=== PATIENT | male | born 1975 | race Caucasian/White ===

== ENCOUNTER → 2018-10-26 09:38 | Outpatient (CLI) | payer OTHER, SELFPAY ==
--- NOTE | 2018-10-26 09:42 | XR_ITS ---
XR KUB HISTORY: Bilateral flank pain ITS.REASON: KIDNEY STONE ORDERING PHYSICIAN: Isra Hoover MD PATIENT AGE: 43 years COMPARISON: 05/01/2018 FINDINGS: The bowel gas pattern is unremarkable. No obvious obstruction.. No abnormal calcifications are evident. No obvious renal or ureteral calculi.. No acute bony anomalies evident. There are bilateral pelvic calcifications consistent with phleboliths. There are 2 coil shaped metallic densities overlying the symphysis pubis IMPRESSION: Negative KUB, no acute finding
== END ==
PROVIDERS: PCP Emergency Medicine; Visit Provider Urology
DX: N20.0 Calculus of kidney (principal)
CPT/HCPCS: 74018

== ENCOUNTER → 2019-10-28 22:58 | Outpatient (CLI) | payer BC, SELFPAY | PROVIDERS: PCP Emergency Medicine; Visit Provider Emergency Medicine | DX: Z03.818 Encounter for observation for suspected exposure to other biological agents ruled out (principal) | CPT/HCPCS: U0003 ==

== ENCOUNTER → 2019-10-31 09:12 | Outpatient (CLI) | payer BC, SELFPAY ==
[2019-11-01 11:01] LABS: Alanine Aminotransferase 50 U/L (12-78); Albumin Level 4.4 g/dl (3.5-5.0); Albumin/Globulin Ratio 1.6 (1.1-1.8); Alkaline Phosphatase 103 U/L (38-126); Anion Gap 14.4 mEq/L (5-15); Aspartate Amino Transferase 40 U/L (17-59); Bilirubin,Total 0.4 mg/dl (0.2-1.3); Blood Urea Nitrogen 10 mg/dl (9-20); Calcium 9.7 mg/dl (8.4-10.2); Carbon Dioxide 28 mmol/L (22.0-30.0); Chloride 103 mmol/L (98-107); Cholesterol 233 mg/dl (140-200); Estimated Glomerular Filt Rate 91 ml/min (>60); GFR (African American) 110 ML/MIN (>60); Globulin 2.7 g/dL (1.3-3.2); Glucose 102 mg/dl (74-100); HDL Cholesterol 47 mg/dl (40-60); Potassium 4.4 mmoL/L (3.5-5.1); Sodium 141 mmol/L (136-145); Total Protein,Serum 7.1 g/dl (6.3-8.2); Triglycerides 114 mg/dl (30-150); VLDL Cholesterol 23 mg/dL (0-40)
[2019-11-01 11:12] LABS: Direct LDL Cholesterol 169.79 mg/dL (100-129)
[2019-11-01 11:17] LABS: Free T4 (Free Thyroxine) 1.13 ng/dl (0.78-2.19)
[2019-11-01 11:18] LABS: 25-OH Vitamin D, Total 37.5 ng/mL (30-100)
[2019-11-01 11:32] LABS: Thyroid Stimulating Hormone 2.66 uIU/mL (0.465-4.68)
== END ==
PROVIDERS: Visit Provider Emergency Medicine
DX: R53.83 Other fatigue (principal); E55.9 Vitamin D deficiency, unspecified
CPT/HCPCS: 80053; 80061; 82306; 84439; 84443

== ENCOUNTER → 2020-04-22 13:22 | Outpatient (POV) | payer BC, SELFPAY | PROVIDERS: Visit Provider Dermatology | DX: Z00.00 Encounter for general adult medical examination without abnormal findings (principal) ==

== ENCOUNTER → 2020-12-17 19:09 | Outpatient (CLI) | payer BC, SELFPAY | PROVIDERS: PCP Emergency Medicine; Visit Provider Nurse Practitioner Family | DX: Z20.822 Contact with and (suspected) exposure to COVID-19 (principal) | CPT/HCPCS: C9803; U0003; U0005 ==

== ENCOUNTER → 2021-10-01 14:10 | Outpatient (CLI) | payer BC, SELFPAY ==
[2021-10-01 14:01] LABS: Influenza A, PCR Not Detected (NotDetected); Influenza B, PCR Not Detected (NotDetected)
[2021-10-01 15:44] LABS: Coronavirus 19, PCR Detected (NotDetected)
== END ==
PROVIDERS: PCP Physician Assistant; Visit Provider Physician Assistant
DX: U07.1 COVID-19 (principal); J06.9 Acute upper respiratory infection, unspecified; M54.2 Cervicalgia; R06.00 Dyspnea, unspecified; R10.32 Left lower quadrant pain; R53.83 Other fatigue; R63.1 Polydipsia; Z83.3 Family history of diabetes mellitus
CPT/HCPCS: C9803; U0003; U0005

== ENCOUNTER → 2021-10-23 12:52 | Outpatient (CLI) | payer BC, SELFPAY ==
--- NOTE | 2021-10-23 12:56 | CA_ITS ---
APPROVED REPORT EXAM: Comprehensive 2D, Doppler, and color-flow Echocardiogram Parachute/Combatant Diver Officer: Zayda Jones RVT Ht: 6 ft 4 in Wt: 225lbs BSA: 2.33 BP: 150/100 mmHg Indications: STONE,RECENT COVID 2D Dimensions LVOT 2.44 cm (M/F) 1.5-2.5 LA Volume 21.70 mL LA Volume Index 9.31 mL/m2 (M/F) 16-34 M-Mode Dimensions RVDd 2.49 cm (0.9-2.6) LA Diam 3.14 cm (1.9-4.0) LVDd 5.34 cm (3.5-5.7) Ao Diam 4.10 cm (2.0-3.7) LVDs 3.80 cm (3.5-5.7) IVSd 0.76 cm (0.6-1.1) PWd 0.63 cm (0.6-1.1) EF (Teich) 55.00% FS 28.80% EDV (Teich) 137.70 mL ESV (Teich) 62.00 mL LV Diastology E Decel Time 190.00 (160-240 msec) E/A Ratio 0.7 MED E' 5.50 (< 7 cm/sec) E'/MED E' Ratio 6.91 (>14) LAT E' 7.80 (<10 cm/sec) E/LAT E' Ratio 4.87 (>14) Aortic Valve AO Peak GR. 3.00 mmHg Mitral Valve MV E Max Leonel. 38.00 (40-130 cm/s) MV A Velocity 53.00 (40-130 cm/s) E/A Ratio 0.72 MV Decel. Time 190.00 (160-240 ms) MV PHT 56.00 ms Pulmonary Valve PV Peak Velocity 60.00 (50-150 cm/s) Tricuspid Valve TR P. Velocity 229.00 cm/s RAP Estimate 10.00 mmHg RVSP 31.00 mmHg Left Ventricle Left atrium is mildly enlarged, left ventricle is normal size , left ventricle wall thickness is upper limit of the normal, there is preserved left ventricular systolic function, estimated ejection fraction 50% with no regional wall motion abnormality, Doppler evidence of impaired LV relaxation seen. Right Ventricle Right atrium and right ventricle are mildly enlarged with normal contractility. Aortic Valve Aortic valve is grossly normal, there is no aortic stenosis or aortic insufficiency. Mitral Valve Mitral valve is grossly normal, there is trace mitral regurgitation. Tricuspid Valve Tricuspid valve grossly normal, there is trace tricuspid regurgitation, tricuspid regurgitation jet velocity is inadequate for calculation of the right ventricular systolic pressure. Pulmonic Valve Pulmonic valve is poorly visualized. Great Vessels Aortic root is normal size. Inferior vena cava is normal size with normal inspiratory collapse. Pericardium No significant pericardial effusion noted. Conclusion 1. Mild biatrial enlargement, normal left ventricular size, estimated ejection fraction 50% with no regional wall motion abnormality, Doppler evidence of impaired LV relaxation seen. 2. Mildly enlarged right ventricle with normal contractility. 3. Trace mitral and tricuspid regurgitation. 4. No significant pericardial effusion noted. 5. Inferior vena cava normal 7 normal inspiratory collapse. Electronically signed by : Sean Benitez MD 10/23/2021 13:33:25
--- NOTE | 2021-10-23 13:21 | XR_ITS ---
FINAL REPORT CLINICAL HISTORY: neck pain FINDINGS: CERVICAL SPINE Seven views demonstrate no acute fracture. There is mild degenerative change in the lower cervical spine with osteophytes. There is chronic calcification posterior to C5. There is no malalignment. IMPRESSION: Degenerative changes as above. Reviewed, Interpreted and Dictated by Joshua Connors III, MD Transcribed by Sharon Schwab Authenticated and [facility]
[2021-10-23 14:54] LABS: Basophils # 0.1 K/mm3 (0-0.2); Basophils % 1.2 % (0.1-2.0); Eosinophils # 0.1 K/mm3 (0.0-0.4); Eosinophils % 1.7 % (0.1-12.0); Hematocrit 43.2 % (42.0-52.0); Hemoglobin 13.7 g/dL (14.1-18.0); Lymphocytes # 1.8 K/mm3 (0.7-4.5); Lymphocytes % 29.1 % (10-50); Mean Corpuscular HGB Conc 31.6 g/dL (31.8-35.4); Mean Corpuscular Hemoglobin 29.2 pg (27.0-31.2); Mean Corpuscular Volume 92.3 fl (80-94); Mean Platelet Volume 7.8 fl (7.4-10.4); Monocytes # 0.4 K/mm3 (0.1-1.0); Monocytes % 6.2 % (1.7-9.3); Neutrophils # 3.9 K/mm3 (1.8-7.8); Neutrophils % 61.7 % (37.0-80.0); Platelet Count 314 K/mm3 (142-424); Red Blood Count 4.68 M/mm3 (4.60-6.20); Red Cell Distribution Width 13.2 % (11.5-17.5); White Blood Count 6.3 K/mm3 (4.8-10.8)
[2021-10-23 15:11] LABS: Hemoglobin A1C 5.7 % (4.0-6.0)
[2021-10-23 15:28] LABS: Alanine Aminotransferase 35 U/L (12-78); Albumin/Globulin Ratio 1.7 (1.1-1.8); Alkaline Phosphatase 85 U/L (38-126); Anion Gap 8.4 mEq/L (5-15); Aspartate Amino Transferase 31 U/L (17-59); Bilirubin,Total 0.2 mg/dl (0.2-1.3); Blood Urea Nitrogen 13 mg/dl (9-20); Calcium 9.2 mg/dl (8.4-10.2); Carbon Dioxide 28 mmol/L (22.0-30.0); Chloride 106 mmol/L (98-107); Chol/HDL Ratio 5.3 (1-3.5); Cholesterol 218 mg/dl (140-200); Estimated Glomerular Filt Rate 71 ml/min (>60); GFR (African American) 86 ML/MIN (>60); Globulin 2.4 g/dL (1.3-3.2); Glucose 149 mg/dl (74-100); HDL Cholesterol 41 mg/dl (40-60); Potassium 4.4 mmoL/L (3.5-5.1); Sodium 138 mmol/L (136-145); Total Protein,Serum 6.4 g/dl (6.3-8.2); Triglycerides 94 mg/dl (30-150); VLDL Cholesterol 19 mg/dL (0-40)
[2021-10-23 15:43] LABS: 25-OH Vitamin D, Total 47.1 ng/mL (30-100)
[2021-10-23 15:58] LABS: Thyroid Stimulating Hormone 0.82 uIU/mL (0.465-4.68)
[2021-10-25 08:12] LABS: Direct LDL Cholesterol 144 mg/dL (100-129)
[2021-10-25 10:08] LABS: Testosterone,Total 430 ng/dL (264-916)
== END ==
PROVIDERS: PCP Physician Assistant; Visit Provider Physician Assistant
DX: R06.00 Dyspnea, unspecified (principal); M54.2 Cervicalgia; R10.32 Left lower quadrant pain; R53.83 Other fatigue; R63.1 Polydipsia; Z83.3 Family history of diabetes mellitus; Z12.5 Encounter for screening for malignant neoplasm of prostate
CPT/HCPCS: 36415; 72050; 80053; 80061; 82306; 83036; 84403; 84443; 85025; 93306; G0103

== ENCOUNTER → 2021-11-12 11:42 | Outpatient (CLI) | payer BC, SELFPAY ==
--- NOTE | 2021-11-12 13:46 | HMH.ITSHM ---
Current Home Medications as stated by this patient Lopez Lazcano or outside sales account representative. [ATORVASTATIN
== END ==
PROVIDERS: PCP Physician Assistant; Visit Provider Physician Assistant
DX: R06.00 Dyspnea, unspecified (principal); R94.31 Abnormal electrocardiogram [ECG] [EKG]; R53.83 Other fatigue; E78.5 Hyperlipidemia, unspecified; R06.83 Snoring; R40.0 Somnolence
CPT/HCPCS: 78452; 93017; A9502

== ENCOUNTER → 2021-11-24 16:04 | Outpatient (CLI) | payer BC, SELFPAY | PROVIDERS: PCP Emergency Medicine; Visit Provider Physician Assistant | DX: G47.33 Obstructive sleep apnea (adult) (pediatric) (principal); R06.00 Dyspnea, unspecified; R06.83 Snoring; R40.0 Somnolence; R94.31 Abnormal electrocardiogram [ECG] [EKG]; E78.5 Hyperlipidemia, unspecified; R53.83 Other fatigue | CPT/HCPCS: G0399 ==

== ENCOUNTER → 2021-11-26 11:07 | Outpatient (CLI) | payer BC, SELFPAY ==
[2021-11-26 11:59] LABS: Basophils # 0.1 K/mm3 (0-0.2); Basophils % 1.4 % (0.1-2.0); Eosinophils # 0.2 K/mm3 (0.0-0.4); Eosinophils % 1.9 % (0.1-12.0); Hemoglobin 14.1 g/dL (14.1-18.0); Lymphocytes # 2.7 K/mm3 (0.7-4.5); Lymphocytes % 31.7 % (10-50); Mean Corpuscular HGB Conc 32.8 g/dL (31.8-35.4); Mean Corpuscular Hemoglobin 29.3 pg (27.0-31.2); Mean Corpuscular Volume 89.4 fl (80-94); Mean Platelet Volume 7.5 fl (7.4-10.4); Monocytes # 0.5 K/mm3 (0.1-1.0); Monocytes % 6.1 % (1.7-9.3); Neutrophils % 58.8 % (37.0-80.0); Platelet Count 370 K/mm3 (142-424); Red Blood Count 4.81 M/mm3 (4.60-6.20); Red Cell Distribution Width 13.5 % (11.5-17.5); White Blood Count 8.5 K/mm3 (4.8-10.8)
[2021-11-26 12:31] LABS: Blood Urea Nitrogen 11 mg/dl (9-20); Carbon Dioxide 30 mmol/L (22.0-30.0); Chloride 107 mmol/L (98-107); Estimated Glomerular Filt Rate 80 ml/min (>60); GFR (African American) 97 ML/MIN (>60); Glucose 81 mg/dl (74-100); Potassium 4.4 mmoL/L (3.5-5.1)
[2021-11-26 12:37] LABS: Anion Gap 7.4 mEq/L (5-15); Sodium 140 mmol/L (136-145)
== END ==
PROVIDERS: PCP Emergency Medicine; Visit Provider Nurse Practitioner
DX: Z01.810 Encounter for preprocedural cardiovascular examination (principal); Z20.822 Contact with and (suspected) exposure to COVID-19
CPT/HCPCS: 36415; 80048; 85025; C9803; U0003; U0005

== ENCOUNTER 2021-11-26 16:30 | Outpatient (RCR) | payer BC, SELFPAY ==
--- NOTE | 2021-11-17 15:38 | HMH.PTOPEV ---
PT Outpatient Evaluation Rehab PT Outpatient Evaluation Start: 11/17/21 14:02 Freq: Status: Active Protocol: Document 11/17/21 14:25 ALANNA (Rec: 11/17/21 15:38 ALANNA [id number]) E-signed By aCm Daniel, PT Outpatient Therapy Subjective History Subjective History Pt reports insidious onset neck pain beginning ~2 yrs ago . Pt reports midline lower cervical area pain/discomfort, with referred pain into CT junction area, as well as bilateral UT mm. Recent xray of cervical spine has revealed mild degenerative changes in the mid/lower cervical spine. Chief Complaint Pain,Stiff Symptom Type Ache,Dull Symptoms Relieved By Rest/Positioning Symptoms Aggravated By Bending/Stooping,Lifting Prior Functional Limitations Lifting,Desk Work/Reading, Driving Current Functional Limitations Lifting,Desk Work/Reading, Driving Symptom Description Constant but Variable Level of pain today (0-10) 2 Pain scale - at its best (0-10) 2 Pain scale - at its worst (0-10) 4 Cervical Eval Palpation Cervical Muscles R Cervical Paraspinal,L Cervical Paraspinal,R CT Junction,L CT Junction,R Upper Trapezius,L Upper Trapezius Cervical/Thoracic Palpation Findings Tenderness Posture Head/C-Spine Posture Sitting Position Flexed Head/C-Spine Posture Standing Position Flexed Flexibility Deficits Upper Trapezius Muscle Length (R) Mild Tightness,(L) Mild Tightness Scalene Group Muscle Length (R) Mild Tightness,(L) Mild Tightness Passive Joint Mobility Cervical PIVM Dec: R C4/5 L C4/5 R C5/6 L C5/6 R C6/7 L C6/7 R C7/T1 L C7/T1 WNL: R OA L OA R AA L AA R C2/3 L C2/3 R C3/4 L C3/4 AROM Cervical Spine Extension Active Range of 0-28 Motion (degrees) Cervical Spine Fle
== END 2021-11-26 17:30 | disposition home or self-care (01) ==
LOC: PT 16:30
PROVIDERS: PCP Physician Assistant; Visit Provider Physician Assistant
DX: M50.30 Other cervical disc degeneration, unspecified cervical region (principal)
CPT/HCPCS: 97010; 97012; 97014; 97110; 97163; G0283

== ENCOUNTER 2021-11-27 08:53 | Day surgery (SDC) | payer BC, SELFPAY ==
[2021-11-27] VITALS (10 sets, daily range): BP systolic 108–130; BP diastolic 71–88; PULSE 66–88; RESP 18; O2SAT 93–98; BMI 26.0
--- NOTE | 2021-11-27 07:06 | IR_ITS ---
APPROVED REPORT Patient Location: Outpatient Fur Mixer: ЕЛЕНА Schulz RT (R) PROCEDURES Left heart catheterization Left ventriculogram Selective coronary angiogram INDICATION High risk abnormal Myoview, Angina pectoris, Informed consent was obtained prior to the procedure. COMPLICATIONS None Estimated Blood Loss: Less than 10 ml TECHNIQUE One percent lidocaine used to anesthetize the right anterior aspect of the wrist. The right radial artery was accessed via the Seldinger technique. A 6 Guyanese sheath was placed in the right radial artery. 2.5 mg of verapamil, 800 mcg of nitroglycerin, 1mg Lidocaine and 5000 U Heparin were given through the arterial sheath. The papa catheter was also used to perform left heart catheterization, left ventriculogram and selective coronary angiogram. At the end of the procedure the sheath was removed good hemostasis was achieved using Traclet band, patient was transferred to the postop holding area in stable condition. ANGIOGRAPHIC RESULTS The left main artery Normal The left anterior descending artery Normal The circumflex artery Normal The right coronary artery Dominant normal The RUDD ventriculogram reveals Normal 65% The left ventricular end-diastolic pressure 10 mmHg IMPRESSION Normal coronary arteries Normal ejection fraction Normal left ventricular end-diastolic pressure False-positive stress test from [facility] PLAN 1. Evaluation of noncardiac chest pain Electronically signed by : Nicholas Cary MD 11/27/2021 10:57:27
== END 2021-11-27 14:03 | disposition home or self-care (01) ==
PROVIDERS: PCP Emergency Medicine; Visit Provider Internal Medicine
DX: R94.39 Abnormal result of other cardiovascular function study (principal); R94.31 Abnormal electrocardiogram [ECG] [EKG]; R93.1 Abnormal findings on diagnostic imaging of heart and coronary circulation; E78.5 Hyperlipidemia, unspecified; R07.9 Chest pain, unspecified; R07.89 Other chest pain
CPT/HCPCS: 93458; 99152; C1725; C1760; C1769; J1644; Q9967

== ENCOUNTER → 2022-08-10 15:39 | Outpatient (POV) | payer BC, SELFPAY | PROVIDERS: Visit Provider Dermatology | DX: Z00.00 Encounter for general adult medical examination without abnormal findings (principal) ==

== ENCOUNTER 2023-04-28 11:42 | Outpatient (CLI) | payer BC, SELFPAY ==
[2023-04-28 11:55] LABS: Basophils # 0.1 K/mm3 (0-0.2); Basophils % 0.5 % (0.1-2.0); Eosinophils # 0.1 K/mm3 (0.0-0.4); Eosinophils % 1.4 % (0.1-12.0); Hematocrit 47.8 % (42.0-52.0); Hemoglobin 15.7 g/dL (14.1-18.0); Lymphocytes # 2.8 K/mm3 (0.7-4.5); Lymphocytes % 31.6 % (10-50); Mean Corpuscular HGB Conc 32.9 g/dL (31.8-35.4); Mean Corpuscular Hemoglobin 29.5 pg (27.0-31.2); Mean Corpuscular Volume 89.5 fl (80-94); Mean Platelet Volume 7.4 fl (7.4-10.4); Monocytes # 0.5 K/mm3 (0.1-1.0); Neutrophils # 5.3 K/mm3 (1.8-7.8); Neutrophils % 60.5 % (37.0-80.0); Platelet Count 385 K/mm3 (142-424); Red Blood Count 5.34 M/mm3 (4.60-6.20); Red Cell Distribution Width 13.1 % (11.5-17.5); White Blood Count 8.8 K/mm3 (4.8-10.8)
[2023-04-28 12:32] LABS: Alanine Aminotransferase 54 U/L (12-78); Albumin Level 4.5 g/dl (3.5-5.0); Albumin/Globulin Ratio 1.6 (1.1-1.8); Alkaline Phosphatase 92 U/L (38-126); Anion Gap 12.5 mEq/L (5-15); Aspartate Amino Transferase 40 U/L (17-59); Bilirubin,Total 0.4 mg/dl (0.2-1.3); Blood Urea Nitrogen 12 mg/dl (9-20); Calcium 9.4 mg/dl (8.4-10.2); Carbon Dioxide 26 mmol/L (22.0-30.0); Chloride 108 mmol/L (98-107); Chol/HDL Ratio 4.9 (1-3.5); Cholesterol 175 mg/dl (140-200); Estimated Glomerular Filt Rate 79 ml/min (>60); GFR (African American) 96 ML/MIN (>60); Globulin 2.8 g/dL (1.3-3.2); Glucose 107 mg/dl (74-100); HDL Cholesterol 36 mg/dl (40-60); Potassium 4.5 mmoL/L (3.5-5.1); Sodium 142 mmol/L (136-145); Total Protein,Serum 7.3 g/dl (6.3-8.2); Triglycerides 106 mg/dl (30-150); VLDL Cholesterol 21 mg/dL (0-40)
[2023-04-28 12:43] LABS: Direct LDL Cholesterol 102.72 mg/dL (100-129)
[2023-04-28 12:48] LABS: 25-OH Vitamin D, Total 14.9 ng/mL (30-100)
[2023-04-28 13:05] LABS: Thyroid Stimulating Hormone 1.18 uIU/mL (0.465-4.68)
[2023-04-28 13:22] LABS: Vitamin B12 333 pg/mL (239-931)
== END 2023-04-28 23:59 ==
LOC: LAB.DROPOF 11:42
PROVIDERS: PCP Physician Assistant; Visit Provider Physician Assistant
DX: E78.5 Hyperlipidemia, unspecified (principal); I10 Essential (primary) hypertension; E55.9 Vitamin D deficiency, unspecified; Z79.899 Other long term (current) drug therapy; Z12.5 Encounter for screening for malignant neoplasm of prostate
CPT/HCPCS: 80053; 80061; 82306; 82607; 84443; 85025; G0103

== ENCOUNTER 2023-06-08 16:18 | Emergency (ER) | payer BC, SELFPAY ==
[2023-06-08] VITALS (12 sets, daily range): BP systolic 116–146; BP diastolic 77–95; PULSE 74–97; RESP 16–18; TEMP 36.6–36.9; O2SAT 87–100; BMI 27.3
--- NOTE | 2023-06-08 16:42 | CT_ITS ---
PROCEDURE INFORMATION: Exam: CT Abdomen And Pelvis Without Contrast Exam date and time: 06/08/2023 5:34 PM Age: 48 years old Clinical indication: Abdominal pain; Additional info: L flank pain TECHNIQUE: Imaging protocol: Computed tomography of the abdomen and pelvis without contrast. Radiation optimization: All CT scans at this facility use at least one of these dose optimization techniques: automated exposure control; mA and/or kV adjustment per patient size (includes targeted exams where dose is matched to clinical indication); or iterative reconstruction. COMPARISON: No relevant prior studies available. FINDINGS: Lungs: Scattered areas of bronchial wall thickening which are likely chronic inflammatory. A few areas of subpleural reticulation are noted, nonspecific. Liver: Normal. Gallbladder and bile ducts: No acute process. Pancreas: Normal. Spleen: There is a small splenule. Adrenal glands: The adrenal glands appear normal. Kidneys and ureters: Moderate left hydroureteronephrosis extending to a 6 mm proximal ureteral calculus (image 67 series 3). Nonobstructing right-sided intrarenal calculi. Nonobstructing left-sided upper pole intrarenal calculi are noted. Stomach and bowel: The stomach, small bowel, and colon are well-distended and show no evidence of wall thickening, masses, or obstruction. Appendix: No evidence of appendicitis. Intraperitoneal space: Unremarkable. Vasculature: There is atherosclerotic disease of the visualized aorta and its major branch vessels. Lymph nodes: No lymphadenopathy. Urinary bladder: There is mild bladder wall thickening, possibly due to under distention and a nonspecific finding. Reproductive: Vasectomy clips partially imaged. Bones/joints: There is diffuse degenerative disease of the visualized osseous structures. Soft tissues: There are fat containing bilateral inguinal hernias. There are postsurgical changes of the ventral abdominal wall. There is a small fat containing umbilical hernia. IMPRESSION: Moderate left hydroureteronephrosis extending to a 6 mm proximal ureteral calculus (image 67 series 3).
--- NOTE | 2023-06-08 16:46 | HMH.EDGENADL ---
Discharge Plan Disposition Patient Disposition: Xfer Short-Term Hosp Condition: Good Prescriptions Prescriptions: No Action Shingrix (PF) 50 mcg/0.5 mL suspension for reconstitution 0.5 ml IM ONCE Qty: 1 0RF pantoprazole [Protonix] 40 mg tablet,delayed release (DR/EC) 40 mg PO DAILY Qty: 30 2RF sucralfate 1 gram tablet 1 g PO QACHS Qty: 120 2RF acyclovir 800 mg tablet 800 mg PO TID PRN (Reason: fever blisters) Qty: 30 2RF tadalafil [Cialis] 5 mg tablet 5 mg PO DAILY PRN (Reason: sexual activity) Qty: 60 3RF Rx Instructions: 5mg Daily 5mg as needed tizanidine 4 mg tablet 4 mg PO TID PRN (Reason: muscle spasticity) Qty: 30 0RF ergocalciferol (vitamin D2) 1,250 mcg (50,000 unit) capsule 1,250 mcg PO WEEKLY Qty: 14 3RF cholecalciferol (vitamin D3) 50 mcg (2,000 unit) capsule 50 mcg PO DAILY Qty: 90 3RF atorvastatin 10 mg tablet See Rx Instructions .ROUTE .COMPLEX Qty: 90 0RF Dose Instruction: TAKE ONE TABLET BY MOUTH EVERY DAY Rx Instructions: TAKE ONE TABLET BY MOUTH EVERY DAY Referrals Follow up/Referrals: Octavia Villela PA [Primary Care Provider] - See instructions Activity Restrictions/Add. Instructions Additional Instructions/Restrictions: You were evaluated in the emergency department today. You were excepted to [facility]. Please proceed directly to [facility]. [address] [place] [address] Clinical Impressions Clinical Impression: Calculus of left ureter, Intractable back pain Stand Alone Forms Stand Alone Forms: Transfer Record - ED Instructions Patient Instructions: DI for Kidney Stones Discharge ED Provider: Vero Waters General Adult HPI General Chief complaint: Abdominal Pain Stated complaint: back pain and abdomin pain Time Seen by Provider: 06/08/23 16:30 History of Present Illness HPI narrative: This patient is a 48-year-old male with a history of bilateral inguinal hernia repair, hypertension, hyperlipidemia, and recurrent kidney stones presenting to the emergency department for evaluation with concern for left flank pain that started overnight. He states that he drinks beers yesterday for his birthday and he thinks this might of caused it. He notes that it radiates around to his groin. He notes that it feels the same as prior kidney stones. He denies any fevers, chills, nausea, vomiting, changes bowel movements, other concerns. He has otherwise been well. Related Data Previous Rx's Medication Instructions Recorded acyclovir 800 mg tablet 800 mg PO TID PRN fever blisters 05/07/22 #30 tabs tadalafil 5 mg tablet (Cialis) 5 mg PO DAILY PRN sexual activity 09/11/22 #60 tabs tizanidine 4 mg tablet 4 mg PO TID PRN muscle spasticity 12/29/22 #30 tabs pantoprazole 40 mg tablet,delayed 40 mg PO DAILY #30 tabs 04/28/23 release (Protonix) sucralfate 1 gram tablet 1 g PO QACHS #120 tabs 04/28/23 varicella-zoster glycoE [id number] 0.5 ml IM ONCE #1 ea 04/28/23 adj(PF) 50 mcg/0.5 mL IM susp, kit (Shingrix (PF)) cholecalciferol (vitamin D3) 50 50 mcg PO DAILY #90 caps 05/02/23 mcg (2,000 unit) capsule ergocalciferol (vitamin D2) 1,250 1,250 mcg PO WEEKLY #14 caps 05/02/23 mcg (50,000 unit) capsule atorvastatin 10 mg tablet See Rx Instructions .Route 05/24/23 .COMPLEX #90 tabs Allergies Allergy/AdvReac Type Severity Reaction Status Date / Time clarithromycin [From BIAXIN] Allergy Intermediate I-RASH Verified 04/28/23 08:51 Penicillins Allergy Intermediate I-RASH Verified 04/28/23 08:51 [facility] Disclaimer: The information contained in this section may have been updated after the patient was seen, as this information can be updated by other users. Medical History Former smoker High cholesterol Social History Smoking Status: Never smoker alcohol intake: current substance use type: denies use current occupational status: employed Travel in the last 8 weeks: Inside the [place] household members: family housing: house ROS Obtained: Yes All systems reviewed & no additional complaints except as documented Physical Exam General General appearance: alert and in no apparent distress Comment: Uncomfortable appearing Head Head exam: atraumatic and normocephalic Eye Eye exam: Present normal appearance, PERRL and EOMI ENT ENT exam: Present normal exam, normal oropharynx, mucous membranes moist and normal external ear exam Neck Neck exam: Present normal inspection, full ROM and trachea midline; Absent tenderness Chest Chest inspection: Present normal inspection and symmetric chest wall rise; Absent tenderness Respiratory Respiratory exam: Present normal lung sounds bilaterally; Absent respiratory distress, wheezes, stridor or accessory muscle use Cardiovascular Cardiovascular exam: Present regular rate and normal rhythm Abdominal Exam Abdominal exam: Present soft; Absent distention, tenderness or guarding Extremities Exam Extremities exam: Present normal inspection, full ROM and normal capillary refill; Absent tenderness or edema Back Exam Back exam: Present full ROM and CVA tenderness (L); Absent tenderness Neurological Exam Neurological exam: Present alert, oriented X3, CN II-XII intact and normal gait; Absent motor sensory deficit Psychiatric Psychiatric exam: Present normal affect and normal mood Skin Skin exam: Present warm and dry Medical Decision Making Medical Records Medical records reviewed: Yes I reviewed the patient's medical records. Geronimo Inquiry Pt receiving controlled substance: No Vital Signs: 06/08/23 16:20 06/08/23 16:45 06/08/23 17:00 Temperature 97.9 F Temperature Source Oral Pulse Rate 84 89 Pulse Rate [Left Radial] 97 H Respiratory Rate 16 Blood Pressure 141/85 H 124/89 Blood Pressure [Right Arm] 144/94 H Blood Pressure Mean Blood Pressure Mean [Right Arm] 110 02 Sat by Pulse Oximetry 98 93 L 100 Oxygen Delivery Method Room Air Room Air Room Air 06/08/23 17:12 06/08/23 17:16 06/08/23 17:45 Temperature Temperature Source Pulse Rate 78 80 78 Pulse Rate [Left Radial] Respiratory Rate Blood Pressure 116/79 127/81 138/89 Blood Pressure [Right Arm] Blood Pressure Mean Blood Pressure Mean [Right Arm] 02 Sat by Pulse Oximetry 99 99 99 Oxygen Delivery Method Room Air Room Air 06/08/23 18:15 06/08/23 18:30 06/08/23 19:00 Temperature Temperature Source Pulse Rate 78 88 88 Pulse Rate [Left Radial] Respiratory Rate Blood Pressure 132/86 146/92 H 134/77 Blood Pressure [Right Arm] Blood Pressure Mean 96 Blood Pressure Mean [Right Arm] 02 Sat by Pulse Oximetry 95 99 96 Oxygen Delivery Method 06/08/23 19:15 06/08/23 19:30 Temperature Temperature Source Pulse Rate 79 90 Pulse Rate [Left Radial] Respiratory Rate Blood Pressure 143/95 H 132/84 Blood Pressure [Right Arm] Blood Pressure Mean 107 99 Blood Pressure Mean [Right Arm] 02 Sat by Pulse Oximetry 97 87 L Oxygen Delivery Method Lab Data Lab results reviewed: Yes I reviewed the patient's lab results. Lab Results 06/08/23 16:39: WBC 10.8, RBC 5.03, Hgb 15.2, Hct 46.2, MCV 91.7, MCH 30.2, MCHC 33.0, RDW 13.2, Plt Count 419, MPV 7.6, Neut % (Auto) 55.7, Lymph % (Auto) 36.2, [place] % (Auto) 6.2, Eos % (Auto) 0.7, Baso % (Auto) 1.2, Neut # (Auto) 6.0, Lymph # (Auto) 3.9, [place] # (Auto) 0.7, Eos # (Auto) 0.1, Baso # (Auto) 0.1, Sodium 143, Potassium 3.6, Chloride 104, Carbon Dioxide 30, Anion Gap 12.6, BUN 12, Creatinine 1.20, Estimated GFR 64, Est GFR ( Amer) 78, Glucose 88, Calcium 9.8, Total Bilirubin 0.4, AST 42, ALT 52, Alkaline Phosphatase 80, Total Protein 7.7, Albumin 4.7, Globulin 3.0, Albumin/Globulin Ratio 1.6, Lipase 103 06/08/23 18:15: Urine Color Yellow, Urine Appearance Clear, Urine pH 7.5, Ur Specific Dixon 1.015, Urine Protein Trace, Urine Glucose (UA) Negative, Urine Ketones 1+, Urine Blood 3+, Urine Nitrate Negative, Urine Bilirubin Negative, Urine Urobilinogen 0.2, Ur Leukocyte Esterase Negative, Urine RBC 20-50, Urine WBC 3-5, Ur Squamous Epith Cells None, Triple Phos Crystals Trace, Urine Bacteria None 06/08/23 16:39 06/08/23 16:39 Orders (Tests/Meds): ED MEDICATIONS Generic Name Dose Route Start Last Admin Trade Name Freq PRN Reason Stop Dose Admin Ketorolac Tromethamine 15 mg 06/08/23 20:35 Ketorolac 30mg/Ml Vial IV 06/08/23 20:36 ONCE ONE Ondansetron HCl 4 mg 06/08/23 20:35 Ondansetron 4mg/2ml Vial IV 06/08/23 20:36 ONCE ONE Discontinued Medications Generic Name Dose Route Start Last Admin Trade Name Pavel PRN Reason Stop Dose Admin Acetaminophen 1,000 mg 06/08/23 16:43 06/08/23 17:02 Acetaminophen 1,000mg/100ml Vial IV 06/08/23 16:44 1,000 mg ONCE ONE Administration Hydromorphone HCl 0.5 mg 06/08/23 17:13 06/08/23 17:17 Hydromorphone 2mg/Ml Syringe IV 06/08/23 17:14 0.5 mg ONCE ONE Administration Lactated Ringer's 1,000 mls @ 999 mls/hr 06/08/23 16:43 06/08/23 17:01 Lactated Ringer's 1000 Ml Bag IV 06/08/23 17:43 999 mls/hr .Q1H1M ONE Administration Ketorolac Tromethamine 15 mg 06/08/23 16:43 06/08/23 17:00 Ketorolac 30mg/Ml Vial IV 06/08/23 16:44 15 mg ONCE ONE Administration Morphine Sulfate 4 mg 06/08/23 16:50 06/08/23 16:58 Morphine 4mg/Ml Syringe IV 06/08/23 16:51 4 mg ONCE ONE Administration Ondansetron HCl 4 mg 06/08/23 16:43 06/08/23 16:59 Ondansetron 4mg/2ml Vial IV 06/08/23 16:44 4 mg ONCE ONE Administration ORDERS Category Date Time Status CT abdomen pelvis wo con Stat Cat Scan 06/08/23 16:42 Completed Complete Blood Count Auto Diff Stat Lab 06/08/23 16:39 Completed Comprehensive Metabolic Panel Stat Lab 06/08/23 16:39 Completed Lipase Stat Lab 06/08/23 16:39 Completed Urinalysis and Microscopic Stat Lab 06/08/23 18:15 Completed Urine Culture Stat Micro 06/08/23 16:42 Ordered Medical Decision Narrative: In summary, this patient is a 48-year-old male presenting to the Emergency Department for evaluation of left flank pain that feels similar to prior kidney stone. Differential diagnoses considered include but are not limited to nephrolithiasis, ureterolithiasis, pyelonephritis, cystitis, colitis, musculoskeletal strain/sprain. Ruling out the most morbid conditions drove assessment. Based on history and clinical exam, feel patient most likely has a kidney stone. Workup included CBC, CMP, urinalysis, urine culture, and CT abdomen and pelvis without IV contrast. He was given a bolus of IV fluids as well as IV Toradol, acetaminophen, and morphine for symptomatic improvement. This did not improve his pain, so he ultimately required IV Dilaudid for pain control. I independently interpreted the scan prior to the radiologist read and noted 6 millimeter left obstructing ureterolithiasis. Please see their read for final interpretation. Labs were obtained that demonstrated no concerns for infection based on urinalysis and no ANASTASIA or leukocytosis. On multiple subsequent reassessments, the patient continues to be uncomfortable and have significant pain. He advises that he does not feel comfortable going home because he has not been able to pass the kidney stones larger than 4 mm in the past. He states he is concerned that he will need to have procedure and wants urology evaluation sooner rather than later. Advised we do not have inpatient urology here, but I did offer to call consultation to another hospital. He requests [facility] at this time. Contact was initiated with them, and as of 1956, I am awaiting callback. I had an interactive discussion with Dr. Lemon at [facility] who advised the patient can be accepted to [facility] for evaluation. I advised the patient that we could transfer him by EMS for continued monitoring and pain control. He declined and stated that he wanted to go POV. I explained to him that he needs to proceed directly to their hospital for further evaluation and management. He was given another dose of IV Toradol as well as IV Zofran before transfer. Patient left in stable condition. Critical Care Critical Care Time Critical Care Time: No
[2023-06-08 16:51] LABS: Basophils # 0.1 K/mm3 (0-0.2); Basophils % 1.2 % (0.1-2.0); Eosinophils # 0.1 K/mm3 (0.0-0.4); Eosinophils % 0.7 % (0.1-12.0); Hematocrit 46.2 % (42.0-52.0); Hemoglobin 15.2 g/dL (14.1-18.0); Lymphocytes # 3.9 K/mm3 (0.7-4.5); Lymphocytes % 36.2 % (10-50); Mean Corpuscular Hemoglobin 30.2 pg (27.0-31.2); Mean Corpuscular Volume 91.7 fl (80-94); Mean Platelet Volume 7.6 fl (7.4-10.4); Monocytes # 0.7 K/mm3 (0.1-1.0); Monocytes % 6.2 % (1.7-9.3); Neutrophils % 55.7 % (37.0-80.0); Platelet Count 419 K/mm3 (142-424); Red Blood Count 5.03 M/mm3 (4.60-6.20); Red Cell Distribution Width 13.2 % (11.5-17.5); White Blood Count 10.8 K/mm3 (4.8-10.8)
[2023-06-08] MEDS: MORPHINE 4MG/ML SYRINGE 4 MG IV (16:58)
[2023-06-08 16:59] LABS: Alanine Aminotransferase 52 U/L (12-78); Albumin Level 4.7 g/dl (3.5-5.0); Albumin/Globulin Ratio 1.6 (1.1-1.8); Alkaline Phosphatase 80 U/L (38-126); Anion Gap 12.6 mEq/L (5-15); Aspartate Amino Transferase 42 U/L (17-59); Bilirubin,Total 0.4 mg/dl (0.2-1.3); Blood Urea Nitrogen 12 mg/dl (9-20); Calcium 9.8 mg/dl (8.4-10.2); Carbon Dioxide 30 mmol/L (22.0-30.0); Chloride 104 mmol/L (98-107); Estimated Glomerular Filt Rate 64 ml/min (>60); GFR (African American) 78 ML/MIN (>60); Glucose 88 mg/dl (74-100); Lipase 103 U/L (23-300); Potassium 3.6 mmoL/L (3.5-5.1); Sodium 143 mmol/L (136-145); Total Protein,Serum 7.7 g/dl (6.3-8.2)
[2023-06-08] MEDS: ONDANSETRON 4MG/2ML VIAL 4 MG IV ×2 (16:59→20:51)
[2023-06-08] MEDS: KETOROLAC 30MG/ML VIAL 15 MG IV ×2 (17:00→20:50)
[2023-06-08] MEDS: LACTATED RINGERS 1000ML 1,000 ML 999 ML IV (17:01)
[2023-06-08] MEDS: ACETAMINOPHEN 1,000MG/100ML VIAL 1000 MG IV (17:02)
[2023-06-08] MEDS: HYDROMORPHONE 2MG/ML SYRINGE 0.5 MG IV (17:17)
--- NOTE | 2023-06-08 17:23 | PC.NURSE ---
Rounded on patient , no needs voiced at this time.
[2023-06-08 18:20] LABS: Microscopic, Urine URINE MICROSCOPIC (MICROSCOPIC)
[2023-06-08 18:23] LABS: Appearance,Urine CLEAR (Clear); Bilirubin,Urine Negative (Negative); Blood, Urine 3+ (Negative); Color,Urine YELLOW (Yellow); Glucose,Urine (UA) Negative (Negative); Ketones,Urine 1+ (Negative); Leukocyte Esterase,Urine Negative (Negative); Nitrate,Urine Negative (Negative); PH,Urine 7.5 (5.0-8.5); Protein,Urine TRACE (Negative); Specific Gravity, Urine 1.015 (1.005-1.030); Urobilinogen,Urine 0.2 EU/dl (0.2)
--- NOTE | 2023-06-08 18:39 | PC.NURSE ---
called for rad to power share images to [place] and burn a disc
[2023-06-08 18:51] LABS: RBC,Urine 20-50 #/hpf (0-3)
[2023-06-08 18:53] LABS: Triple Phosphate Crystal,Urine Trace /lpf
--- NOTE | 2023-06-08 19:39 | PC.NURSE ---
call placed to [facility] for possible transfer d/t obstructive renal calculi.
--- NOTE | 2023-06-08 19:41 | PC.NURSE ---
waiting marine propulsion technician back from transfer center on
--- NOTE | 2023-06-08 20:29 | PC.NURSE ---
contacted [facility], spoke with pernell. they are just a little backed up
--- NOTE | 2023-06-08 20:30 | PC.NURSE ---
dr sales returned call
--- NOTE | 2023-06-08 20:40 | PC.NURSE ---
Report given to GAUDENCIO Ang @ [facility]. [id number]
== END 2023-06-08 20:54 | disposition short-term general hospital (02) ==
PROVIDERS: Emergency Provider Emergency Medicine; PCP Physician Assistant
DX: N13.30 Unspecified hydronephrosis (principal); N20.2 Calculus of kidney with calculus of ureter; M54.9 Dorsalgia, unspecified; R10.2 Pelvic and perineal pain; I10 Essential (primary) hypertension; E78.5 Hyperlipidemia, unspecified; Z87.891 Personal history of nicotine dependence
CPT/HCPCS: 74176; 80053; 81001; 83690; 85025; 87086; 96361; 96374; 96375; 96376; 99285; J0131; J2405

== ENCOUNTER 2023-06-14 08:10 | Day surgery (SDC) | payer BC, SELFPAY ==
[2023-06-13 10:04] VITALS: BMI 28.0
[2023-06-14] MEDS: LACTATED RINGERS 1000ML 1,000 ML 25 ML IV (08:21)
[2023-06-14 08:23] VITALS: BP 139/90; PULSE 98; RESP 18; TEMP 36.2; O2SAT 99
--- NOTE | 2023-06-14 08:37 | P.PNANES_ITS ---
[facility] Disclaimer: The information contained in this section may have been updated after the patient was seen, as this information can be updated by other users. Medical History Former smoker High cholesterol Surgical History H/O cystoscopy Family History Other Family history of myocardial infarction Social History Smoking Status: Never smoker alcohol intake: current substance use type: denies use current occupational status: employed Travel in the last 8 weeks: [place] the [place] household members: family housing: house [facility] Anesthesia Checklist Patient Identification Patient Identification: Arm Band Structural Data Admitted From: Home Planned Operative Procedure/s: EGD Consent for Planned Operative Procedure(s) Verified: Yes Verified Documents: Surgical Consent and History and Physical NPO Status Verified Time NPO: 00:00 Additional verifications Anesthesia Reactions: No Airway Assessment Mallampati Score:: Class II C-Spine Mobility Assessed: Yes TMJ Mobility Assessed: Yes Dentition: Good Dentition Neurological Assessment Level of Consciousness: Awake and Alert Anesthesia Plan Anesthesia Risk discussed: Yes Anesthesia Plan: Verified ASA Class: II Anesthesia Type: MAC
--- NOTE | 2023-06-14 08:47 | P.PCN_ITS ---
Procedure: Date: 06/14/23 Patient Date of :: 1975 Procedure Performed:: Esophagogastroduodenoscopy with biopsy Indications:: Dysphagia Gastroesophageal reflux Heartburn Note: Patient has multiple gastrointestinal complaints including bloating. He is currently scheduled to undergo colonoscopy in [facility] during the first week of June. Performing Provider:: Khanh Gao MD Referring Provider:: . Sedation:: Monitored anesthesia care Procedure:: After informed consent was obtained the patient was taken to the endoscopy suite. Sedation ensued after the patient was transferred to the left lateral decubitus position. Pulse, blood pressure, and oxygen saturation were monitored throughout the procedure. The endoscope was advanced beyond the duodenal bulb. Retroflexion within the gastric lumen was accomplished. The gastroscope was carefully removed and the patient was transferred to recovery in stable condition. Please see findings and specimens below for detail. Findings:: Small shallow punctate ulcerations in antrum No sign of recent/active hemorrhage Moderate volume of food particles throughout gastric lumen Mild to moderate patchy gastritis Specimens:: Antral biopsy Recommendations:: Follow-up pathology Likely repeat esophagogastroduodenoscopy in 6-8 weeks (may defer to the gastroenterology service) Consider barium swallow Consider UGI/SBFT Consider gastric emptying scan Consider gastroenterology consultation Continue proton pump inhibition Complications:: No immediate Estimated blood obtained (mL): 1 Colonoscopy Component Colonoscopy Component Was a colonoscopy performed during today's procedure?: No
[2023-06-14 08:51] VITALS: O2SAT 99
[2023-06-14 09:15] VITALS: BP 117/84; PULSE 110; RESP 18; TEMP 36.6; O2SAT 97
[2023-06-14 09:25] VITALS: BP 106/67; PULSE 115; RESP 20; O2SAT 95
[2023-06-14 09:32] VITALS: BP 112/72; PULSE 115; RESP 20; O2SAT 95
== END 2023-06-14 09:34 | disposition home or self-care (01) ==
PROVIDERS: PCP Physician Assistant; Visit Provider Surgery
PROC: 0DJ08ZZ Inspection of Upper Intestinal Tract, Via Natural or Artificial Opening Endoscopic (ICD-10-PCS; CPT 43235; principal; 2023-06-14 08:00)
DX: K21.9 Gastro-esophageal reflux disease without esophagitis (principal); R13.10 Dysphagia, unspecified; K29.50 Unspecified chronic gastritis without bleeding; K25.9 Gastric ulcer, unspecified as acute or chronic, without hemorrhage or perforation
CPT/HCPCS: 43239

== ENCOUNTER 2023-06-14 10:51 | Emergency (ER) | payer BC, SELFPAY ==
[2023-06-14] VITALS (11 sets, daily range): BP systolic 107–133; BP diastolic 71–90; PULSE 103–119; RESP 14–27; TEMP 36.5; O2SAT 90–96; BMI 28.0
--- NOTE | 2023-06-14 10:52 | ECG_ITS ---
APPROVED REPORT Exam: Resting ECG HR:109 bpm ECG Measurements Heart Rate 109 AXES MI 129 P 21 QRSd 90 QRS 1 QT 333 T 29 QTc 397 Conclusion SINUS TACHYCARDIA NONSPECIFIC T-WAVE ABNORMALITY ABNORMAL RHYTHM ECG Electronically signed by : TOM DELA CRUZ, 06/23/2023 15:29:32
--- NOTE | 2023-06-14 10:53 | CT_ITS ---
FINAL REPORT TECHNIQUE: The patient was injected with IV contrast. Axial images were obtained through the chest in a PE protocol. 3-D reconstruction images were also performed. Individualized dose reduction techniques using automated exposure control or adjustment of the MA and/or KV according to patient's size were employed. CLINICAL HISTORY: chest pain after EGD this morning, cough, SOA FINDINGS: Mediastinal vasculature is adequately opacified. No pulmonary artery filling defects are identified to suggest PE. There is no aortic dissection. There is no axillary adenopathy. There are scattered mediastinal lymph nodes. The heart size is normal. There is no pericardial or pleural effusion. There is minimal patchy airspace opacity at the bases, left greater than right. IMPRESSION: No pulmonary embolus or dissection. Minimal bibasilar airspace infiltrates. Reviewed, Interpreted and Dictated by Luis E Capellan MD Transcribed by Sharon Schwab Authenticated and [facility]
--- NOTE | 2023-06-14 10:53 | CT_ITS ---
FINAL REPORT TECHNIQUE: Postcontrast axial images through the abdomen and pelvis were performed. This study was performed with techniques to keep radiation doses as low as reasonably achievable, (ALARA). Individualized dose reduction techniques using automated exposure control or adjustment of mA and/or kV according to the patient's size were employed. CLINICAL HISTORY: chest pain, worsened flank pain, recent L stent COMPARISON: 06/08/2023 FINDINGS: Abdomen: There is a large mass in the posterior right lobe of the liver measuring 7.8 x 5.8 cm. There is nodular peripheral enhancement favored to represent a large hemangioma. The gallbladder is present. The spleen is unremarkable. The adrenals are normal. The pancreas is unremarkable. There are multiple nonobstructing stones in the renal collecting systems bilaterally. The aorta is normal in caliber. No free fluid or adenopathy is identified. There is a stone in the left UPJ measuring 8 mm in greatest dimension. Left ureteral stent is identified, new since previous. Pelvis: The appendix is normal. The urinary bladder is decompressed. There are postoperative changes in the inguinal regions bilaterally, probably due to prior inguinal hernia repairs. No free fluid, free air, abscess or adenopathy is identified. IMPRESSION: New left ureteral stent with persistent left UPJ stone. Nonobstructing bilateral renal stones. Large hemangioma in the posterior right lobe of the liver. Reviewed, Interpreted and Dictated by Luis E Capellan MD Transcribed by Sharon Schwab Authenticated and . [facility]
--- NOTE | 2023-06-14 10:58 | HMH.EDGENADL ---
Discharge Plan Disposition Patient Disposition: Home, Self-Care Condition: Good Prescriptions Prescriptions: New oxycodone 5 mg tablet 5 mg PO Q8H PRN (Reason: pain) Qty: 12 0RF No Action pantoprazole [Protonix] 40 mg tablet,delayed release (DR/EC) 40 mg PO DAILY Qty: 30 2RF sucralfate 1 gram tablet 1 g PO QACHS Qty: 120 2RF acyclovir 800 mg tablet 800 mg PO TID PRN (Reason: fever blisters) Qty: 30 2RF tadalafil [Cialis] 5 mg tablet 5 mg PO DAILY PRN (Reason: sexual activity) Qty: 60 3RF Rx Instructions: 5mg Daily 5mg as needed ergocalciferol (vitamin D2) 1,250 mcg (50,000 unit) capsule 1,250 mcg PO WEEKLY Qty: 14 3RF cholecalciferol (vitamin D3) 50 mcg (2,000 unit) capsule 50 mcg PO DAILY Qty: 90 3RF atorvastatin 10 mg tablet See Rx Instructions .ROUTE .COMPLEX Qty: 90 0RF Dose Instruction: TAKE ONE TABLET BY MOUTH EVERY DAY Rx Instructions: TAKE ONE TABLET BY MOUTH EVERY DAY phenazopyridine 200 mg Tablet 200 mg PO TID tamsulosin [Flomax] 0.4 mg Capsule 0.4 mg PO DAILY oxycodone 5 mg Tablet 5 mg PO Q6H PRN (Reason: infection) Referrals Follow up/Referrals: Octavia Villela PA [Primary Care Provider] - See instructions Activity Restrictions/Add. Instructions Additional Instructions/Restrictions: You were evaluated in the emergency department today. Please scrap picker your prescription and take as needed for severe pain. Slowly advance your diet as tolerated. Follow-up closely with general surgery as well as urology. Return to the emergency department for new or worsening symptoms, such as significant chest pain, shortness of breath, fever greater than 100.4 ?F, or other concerns. You were incidentally found to have a liver hemangioma on CT scan, for which I recommend follow-up with your primary care provider. These are generally benign and do not require any intervention. Clinical Impressions Clinical Impression: Chest pain, Cough, Dysphagia, Left flank pain, Retained ureteral stent, Liver hemangioma, Pleural effusion, Aspiration into airway Stand Alone Forms Stand Alone Forms: Work/School Release Instructions Patient Instructions: DI for Atypical Chest Pain, DI for Esophageal Dysphagia Discharge ED Provider: Scott Jc General Adult HPI General Chief complaint: Chest Pain Stated complaint: SOA Time Seen by Provider: 06/14/23 10:53 History of Present Illness HPI narrative: This patient is a 48-year-old male with a history of hypertension, hyperlipidemia, recent diagnosis of left ureteral stone status post stent placement 06/09/23, and EGD this morning presenting to the emergency department for evaluation with concern for chest pain, cough, shortness of breath, and severe left flank pain that started after his EGD. Patient reports that he could not stop coughing after the EGD and is since developed midsternal chest pain as well as shortness of breath. He feels like he cannot calm himself and slow his breathing, and he cannot get a good breath in. He has tried some sips of water since the EGD, and he notes no issues with that, as he states that his throat does not hurt. He states that only his lower chest hurts. On medical record review, he had an EGD with Dr. Rogers this morning, and he was found to have small punctate ulcerations in the antrum with no evidence of active bleeding. He had patchy gastritis and small volume of food particles throughout the gastric lumen. He had an antral biopsy. It appears this was uncomplicated. Plan is for further outpatient testing, such as upper GI, gastric emptying scan, GI consultation, and repeat EGD. Patient is already on a PPI. Of note, patient states that he is also having severe left flank pain since the stent, which has not improved. He states that his follow-up with urology is not until 07/12/2023. On medical record review from [facility], patient had contacted them yesterday for continued pain, which point his follow-up date was changed to 06/28/2023. Related Data Home Medications Medication Instructions Recorded Confirmed oxycodone 5 mg tablet 5 mg PO Q6H PRN infection 06/13/23 06/13/23 phenazopyridine 200 mg tablet 200 mg PO TID 06/13/23 06/13/23 tamsulosin 0.4 mg capsule (Flomax) 0.4 mg PO DAILY 06/13/23 06/13/23 Previous Rx's Medication Instructions Recorded acyclovir 800 mg tablet 800 mg PO TID PRN fever blisters 05/07/22 #30 tabs tadalafil 5 mg tablet (Cialis) 5 mg PO DAILY PRN sexual activity 09/11/22 #60 tabs pantoprazole 40 mg tablet,delayed 40 mg PO DAILY #30 tabs 04/28/23 release (Protonix) sucralfate 1 gram tablet 1 g PO QACHS #120 tabs 04/28/23 cholecalciferol (vitamin D3) 50 50 mcg PO DAILY #90 caps 05/02/23 mcg (2,000 unit) capsule ergocalciferol (vitamin D2) 1,250 1,250 mcg PO WEEKLY #14 caps 05/02/23 mcg (50,000 unit) capsule atorvastatin 10 mg tablet See Rx Instructions .Route 05/24/23 .COMPLEX #90 tabs oxycodone 5 mg tablet 5 mg PO Q8H PRN pain #12 tabs 06/14/23 Allergies Allergy/AdvReac Type Severity Reaction Status Date / Time clarithromycin [From BIAXIN] Allergy Intermediate I-RASH Verified 06/14/23 08:22 Penicillins Allergy Intermediate I-RASH Verified 06/14/23 08:22 [facility] Disclaimer: The information contained in this section may have been updated after the patient was seen, as this information can be updated by other users. Medical History Former smoker High cholesterol Surgical History H/O cystoscopy Family History Other Family history of myocardial infarction Social History Smoking Status: Never smoker alcohol intake: current substance use type: denies use current occupational status: employed Travel in the last 8 weeks: Inside the [place] household members: family housing: house ROS Obtained: Yes All systems reviewed & no additional complaints except as documented Physical Exam General General appearance: alert and anxious Comment: Very anxious appearing, crying out Head Head exam: atraumatic and normocephalic Eye Eye exam: Present normal appearance, PERRL and EOMI ENT ENT exam: Present normal exam, normal oropharynx, mucous membranes moist and normal external ear exam Neck Neck exam: Present normal inspection, full ROM and trachea midline; Absent tenderness Chest Chest inspection: Present normal inspection and symmetric chest wall rise; Absent tenderness Respiratory Respiratory exam: Present normal lung sounds bilaterally; Absent respiratory distress, wheezes, stridor or accessory muscle use Cardiovascular Cardiovascular exam: Present normal rhythm and tachycardia Abdominal Exam Abdominal exam: Present soft and tenderness (L lower abdomen); Absent distention, guarding, rebound or rigidity Extremities Exam Extremities exam: Present normal inspection, full ROM and normal capillary refill; Absent tenderness or edema Back Exam Back exam: Present full ROM and CVA tenderness (L); Absent tenderness Neurological Exam Neurological exam: Present alert, oriented X3, CN II-XII intact and normal gait; Absent motor sensory deficit Psychiatric Psychiatric exam: Present anxious Skin Skin exam: Present warm and dry Medical Decision Making Medical Records Medical records reviewed: Yes I reviewed the patient's medical records. Geronimo Inquiry Pt receiving controlled substance: No Vital Signs: 06/14/23 10:55 06/14/23 11:03 06/14/23 11:30 Temperature 97.7 F Temperature Source Oral Pulse Rate 106 H 103 H Pulse Rate [Left] 109 H Respiratory Rate 23 27 H 20 Blood Pressure 107/71 L 123/74 Blood Pressure [Right Arm] 133/90 Blood Pressure Mean 87 82 Blood Pressure Mean [Right Arm] 104 Blood Pressure Source [Right Arm] Automatic Cuff Blood Pressure Position [Right Arm] Sitting 02 Sat by Pulse Oximetry 92 L 90 L 95 06/14/23 12:00 06/14/23 12:30 06/14/23 13:00 Temperature Temperature Source Pulse Rate 119 H 112 H 113 H Pulse Rate [Left] Respiratory Rate 23 23 24 Blood Pressure 118/79 125/76 125/81 Blood Pressure [Right Arm] Blood Pressure Mean 91 90 96 Blood Pressure Mean [Right Arm] Blood Pressure Source [Right Arm] Blood Pressure Position [Right Arm] 02 Sat by Pulse Oximetry 96 95 96 06/14/23 13:30 06/14/23 14:00 06/14/23 14:30 Temperature Temperature Source Pulse Rate 112 H 111 H 112 H Pulse Rate [Left] Respiratory Rate 21 24 17 Blood Pressure 123/83 118/75 116/80 Blood Pressure [Right Arm] Blood Pressure Mean 95 87 87 Blood Pressure Mean [Right Arm] Blood Pressure Source [Right Arm] Blood Pressure Position [Right Arm] 02 Sat by Pulse Oximetry 96 95 93 L 06/14/23 15:00 Temperature Temperature Source Pulse Rate 115 H Pulse Rate [Left] Respiratory Rate 14 Blood Pressure 121/77 Blood Pressure [Right Arm] Blood Pressure Mean 85 Blood Pressure Mean [Right Arm] Blood Pressure Source [Right Arm] Blood Pressure Position [Right Arm] 02 Sat by Pulse Oximetry 93 L Lab Data Lab results reviewed: Yes I reviewed the patient's lab results. Lab Results 06/14/23 10:56: VBG pH 7.32, VBG pCO2 50.4, VBG pO2 26.2 L, VBG HCO3 25.6, VBG Total CO2 27.1 H, VBG O2 Saturation 45.3 L, VBG Base Excess -0.5, VBG Lactic Acid 2.8 H 06/14/23 11:00: WBC 10.8, RBC 5.22, Hgb 15.9, Hct 48.4, MCV 92.8, MCH 30.5, MCHC 32.8, RDW 13.1, Plt Count 424, MPV 7.7, Neut % (Auto) 79.9, Lymph % (Auto) 14.5, Bond % (Auto) 3.6, Eos % (Auto) 1.2, Baso % (Auto) 0.9, Neut # (Auto) 8.7 H, Lymph # (Auto) 1.6, Bond # (Auto) 0.4, Eos # (Auto) 0.1, Baso # (Auto) 0.1, Sodium 142, Potassium 4.4, Chloride 108 H, Carbon Dioxide 29, Anion Gap 9.4, BUN 19, Creatinine 1.20, Estimated Creat Clear 109, Estimated GFR 64, Est GFR ( Amer) 78, Glucose 129 H, Calcium 9.6, Total Bilirubin 0.4, AST 50, ALT 58, Alkaline Phosphatase 96, Troponin I < 0.01, Total Protein 7.4, Albumin 4.5, Globulin 2.9, Albumin/Globulin Ratio 1.6, Lipase 69 06/14/23 11:30: Lactate 1.5 06/14/23 11:41: Urine Color Yellow, Urine Appearance Clear, Urine pH 7.0, Ur Specific Zapata 1.015, Urine Protein Trace, Urine Glucose (UA) Negative, Urine Ketones Negative, Urine Blood 3+, Urine Nitrate Negative, Urine Bilirubin Negative, Urine Urobilinogen 0.2, Ur Leukocyte Esterase Trace, Urine RBC 50-100, Urine WBC 5-10, Ur Squamous Epith Cells Occasional, Urine Bacteria 1+, Urine Mucus Trace 06/14/23 13:52: Troponin I < 0.01 06/14/23 11:00 06/14/23 11:00 Orders (Tests/Meds): ED MEDICATIONS Generic Name Dose Route Start Last Admin Trade Name Freq PRN Reason Stop Dose Admin Sodium Chloride 8 ml 06/14/23 10:56 06/14/23 11:08 Sodium Chloride 0.9% 10ml Vial IV 07/14/23 10:55 8 ml NEEDED PRN Administration dilute pepcid Sodium Chloride 10 ml 06/14/23 11:34 06/14/23 11:40 Sodium Chloride 0.9% 10ml Syr (Rad Only) IV 07/14/23 11:33 10 ml NEEDED PRN Administration Maintain IV Site Discontinued Medications Generic Name Dose Route Start Last Admin Trade Name Freq PRN Reason Stop Dose Admin Acetaminophen 1,000 mg 06/14/23 13:11 06/14/23 13:25 Acetaminophen 1,000mg/100ml Vial IV 06/14/23 13:12 1,000 mg ONCE ONE Administration Belladonna Alkaloids 60 ml 06/14/23 14:12 Belladonna Alkaloids 60 Ml Ml PO 06/14/23 14:13 ONCE ONE Famotidine 20 mg 06/14/23 10:56 06/14/23 11:08 Famotidine 20mg/2ml Vial IV 06/14/23 10:57 20 mg ONCE ONE Administration Lactated Ringer's 1,000 mls @ 999 mls/hr 06/14/23 10:56 06/14/23 11:08 Lactated Ringer's 1000 Ml Bag IV 06/14/23 11:56 999 mls/hr .Q1H1M ONE Administration Lactated Ringer's 1,000 mls @ 999 mls/hr 06/14/23 12:19 06/14/23 13:56 Lactated Ringer's 1000 Ml Bag IV 06/14/23 13:19 999 mls/hr .Q1H1M ONE Administration Iopamidol 75 ml 06/14/23 11:34 06/14/23 11:40 Iopamidol-370 (76%);100ml Bottle IV 06/14/23 11:35 75 ml ONCE ONE Administration Ketorolac Tromethamine 15 mg 06/14/23 13:11 06/14/23 13:24 Ketorolac 30mg/Ml Vial IV 06/14/23 13:12 15 mg ONCE ONE Administration Morphine Sulfate 4 mg 06/14/23 10:55 06/14/23 11:08 Morphine 4mg/Ml Syringe IV 06/14/23 10:56 4 mg ONCE ONE Administration Nitroglycerin 0.4 mg 06/14/23 14:13 Nitroglycerin 0.4mg Sl Tablet SL 06/14/23 14:14 ONCE ONE Ondansetron HCl 4 mg 06/14/23 10:55 06/14/23 11:08 Ondansetron 4mg/2ml Vial IV 06/14/23 10:56 4 mg ONCE ONE Administration Sodium Chloride 50 ml 06/14/23 11:34 06/14/23 11:40 0.9 % Sodium Chloride 50 Ml Vial IV 06/14/23 11:35 50 ml ONCE ONE Administration ORDERS Category Date Time Status CT abdomen pelvis w con Stat Cat Scan 06/14/23 10:[address] angio chest PE protocol Stat Cat Scan 06/14/23 10:53 Taken Complete Blood Count Auto Diff Stat Lab 06/14/23 11:00 Completed Comprehensive Metabolic Panel Stat Lab 06/14/23 11:00 Completed Lactic Acid Stat Lab 06/14/23 11:30 Completed Lipase Stat Lab 06/14/23 11:00 Completed Troponin I Q3H Lab 06/14/23 13:52 Completed Troponin I Q3H Lab 06/14/23 17:00 Ordered Troponin I Stat Lab 06/14/23 11:00 Completed Urinalysis and Microscopic Stat Lab 06/14/23 11:41 Completed Urine Culture Stat Micro 06/14/23 10:53 Received VBG [Venous Blood Gas] Stat RT 06/14/23 10:56 Completed ECG Data Tracing #1: I reviewed this ECG and interpreted as documented below: Significant motion artifact noted. Sinus tachycardia with a ventricular rate of [address] elevations concerning for STEMI. ECG initial impression date: 06/14/23 ECG initial impression time: 10:53 Medical Decision Narrative: In summary, this patient is a 48-year-old male presenting to the Emergency Department for evaluation of chest pain, cough, shortness of breath after EGD as well as continued left flank pain after recent stent placement from left ureteral stone. Differential diagnoses considered include but are not limited to ACS, dysrhythmia, esophageal spasm, esophagitis, aspiration, pneumonia, pleurisy, pneumothorax, esophageal perforation, intestinal perforation, anxiety, stent migration. Ruling out the most morbid conditions drove assessment. On exam, the patient is very anxious appearing and uncomfortable. Vitals demonstrate sinus tachycardia in the low 100s but otherwise patient has reassuring vitals. Workup included CBC, CMP, lipase, lactic acid, troponin, VBG, EKG, CT PE protocol, and CT abdomen and pelvis with IV contrast. Patient was given a bolus of IV fluids as well as IV morphine and Zofran for symptomatic improvement. EKG had significant motion artifact from the patient actively hyperventilating and panicking, but no obvious STEMI and will repeat once the patient is more calm and comfortable. I independently interpreted CT scan prior to the radiologist read and noted tiny bilateral pleural effusions with no obvious mediastinal free air. Patient's ureteral stent appears to be in place, and I do still note that the stone and hydronephrosis are present. Please see their read for final interpretation. Labs were obtained that demonstrated no significant leukocytosis, negative troponin, and no other acutely concerning abnormalities. On reassessment, patient had good improvement in his chest pain. He states that he coughed some things up, and now he is feeling much better. He notes that his left flank pain is still severe related to his ureteral stent. He was given IV Toradol and acetaminophen for this. I initially offered him GI cocktail as well as nitroglycerin for presumed esophageal spasms and reflux after his CT scans were read, however he stated he did not feel like he needed it because he is feeling much better. I had an interactive discussion with Dr. Rogers with general surgery who advised that the patient is very low risk for esophageal perforation given that he did not have any dilation or other procedures that would put him at increased risk, however of course risk is not 0%. After informed decision-making with the patient, he states that since he is feeling much better, he feels comfortable going home without further workup of this, as we are unable to get barium swallow at this time given IR is not here. It is noted the patient had a lot of gastric contents and esophagus/stomach at the time of EGD, possibly due to some sort of gastric emptying issue. With his tiny pleural effusions and respiratory symptoms that improved with clearing of his airway, I feel he could have potentially aspirated gastric contents into his airway and he could have an aspiration pneumonitis as cause of this. He is maintaining a normal oxygen saturation on room air. After administration of Tylenol and Toradol for the patient's flank pain, he is feeling better and is feeling comfortable to go home. He already has outpatient follow-up arranged with Dr. Rogers as well as with urology at [facility]. He notes that he has had issues getting his pain medication from [facility], as they only sent it into [facility] and have not transferred it appear for him. Given this, I did fill a brief course of oxycodone for him related to his ureterolithiasis and stent. I given very strict return precautions should he develop worsening chest pain, dysphagia, fever, or other concerns. He expressed understanding and agreement. The patient was discharged in stable condition after all questions were answered. Critical Care Critical Care Time Critical Care Time: No
[2023-06-14] MEDS: LACTATED RINGERS 1000ML 1,000 ML 999 ML IV ×2 (11:08→13:56)
[2023-06-14] MEDS: SODIUM CHLORIDE 0.9% 10ML VIAL 8 ML IV (11:08)
[2023-06-14] MEDS: MORPHINE 4MG/ML SYRINGE 4 MG IV (11:08)
[2023-06-14] MEDS: ONDANSETRON 4MG/2ML VIAL 4 MG IV (11:08)
[2023-06-14] MEDS: FAMOTIDINE 20MG/2ML VIAL 20 MG IV (11:08)
[2023-06-14 11:09] LABS: Basophils # 0.1 K/mm3 (0-0.2); Basophils % 0.9 % (0.1-2.0); Eosinophils # 0.1 K/mm3 (0.0-0.4); Eosinophils % 1.2 % (0.1-12.0); Hematocrit 48.4 % (42.0-52.0); Hemoglobin 15.9 g/dL (14.1-18.0); Lymphocytes # 1.6 K/mm3 (0.7-4.5); Lymphocytes % 14.5 % (10-50); Mean Corpuscular HGB Conc 32.8 g/dL (31.8-35.4); Mean Corpuscular Hemoglobin 30.5 pg (27.0-31.2); Mean Corpuscular Volume 92.8 fl (80-94); Mean Platelet Volume 7.7 fl (7.4-10.4); Monocytes # 0.4 K/mm3 (0.1-1.0); Monocytes % 3.6 % (1.7-9.3); Neutrophils # 8.7 K/mm3 (1.8-7.8); Neutrophils % 79.9 % (37.0-80.0); Platelet Count 424 K/mm3 (142-424); Red Blood Count 5.22 M/mm3 (4.60-6.20); Red Cell Distribution Width 13.1 % (11.5-17.5); White Blood Count 10.8 K/mm3 (4.8-10.8)
[2023-06-14 11:26] LABS: Chloride 108 mmol/L (98-107); Potassium 4.4 mmoL/L (3.5-5.1); Sodium 142 mmol/L (136-145)
[2023-06-14 11:29] LABS: Alanine Aminotransferase 58 U/L (12-78); Alkaline Phosphatase 96 U/L (38-126); Anion Gap 9.4 mEq/L (5-15); Aspartate Amino Transferase 50 U/L (17-59); Bilirubin,Total 0.4 mg/dl (0.2-1.3); Blood Urea Nitrogen 19 mg/dl (9-20); Calcium 9.6 mg/dl (8.4-10.2); Carbon Dioxide 29 mmol/L (22.0-30.0); Creatinine Clearance Estimated 109 mL/min (50-200); Estimated Glomerular Filt Rate 64 ml/min (>60); GFR (African American) 78 ML/MIN (>60); Glucose 129 mg/dl (74-100); Lipase 69 U/L (23-300)
[2023-06-14 11:30] LABS: Albumin Level 4.5 g/dl (3.5-5.0); Albumin/Globulin Ratio 1.6 (1.1-1.8); Globulin 2.9 g/dL (1.3-3.2); Total Protein,Serum 7.4 g/dl (6.3-8.2)
[2023-06-14 11:31] LABS: VBG Base Excess -0.5 mmol/L (-2.4-2.3); VBG HCO3 25.6 mmol/L (23-30); VBG Oxygen Saturation 45.3 % (50-70); VBG PCO2 50.4 mmol/L (35-51); VBG PH 7.32 mmol/L (7.31-7.41); VBG PO2 26.2 mmol/L (28-40); VBG Total CO2 27.1 mmol/L (23-27)
[2023-06-14 11:33] LABS: Lactate Venous 2.8 mmol/L (0.4-2.0)
[2023-06-14] MEDS: IOPAMIDOL-370 (76%);100ML BOTTLE 75 ML IV (11:40)
[2023-06-14] MEDS: 0.9 % SODIUM CHLORIDE 50 ML VIAL IV (11:40)
[2023-06-14] MEDS: SODIUM CHLORIDE 0.9% 10ML SYR (RAD ONLY) 10 ML IV (11:40)
[2023-06-14 11:43] LABS: Troponin I < 0.01 ng/ml (0.00-0.034)
[2023-06-14 11:45] LABS: Microscopic, Urine URINE MICROSCOPIC (MICROSCOPIC)
[2023-06-14 11:47] LABS: Appearance,Urine CLEAR (Clear); Bilirubin,Urine Negative (Negative); Blood, Urine 3+ (Negative); Color,Urine YELLOW (Yellow); Glucose,Urine (UA) Negative (Negative); Ketones,Urine Negative (Negative); Leukocyte Esterase,Urine TRACE (Negative); Nitrate,Urine Negative (Negative); Protein,Urine TRACE (Negative); Specific Gravity, Urine 1.015 (1.005-1.030); Urobilinogen,Urine 0.2 EU/dl (0.2)
[2023-06-14 11:49] LABS: Lactic Acid 1.5 mmol/L (0.7-2.1)
--- NOTE | 2023-06-14 12:15 | PC.NURSE ---
DR AZAR AT BEDSIDE TO UPDATE PT
[2023-06-14 12:29] LABS: RBC,Urine 50-100 #/hpf (0-3)
[2023-06-14 12:30] LABS: Bacteria,Urine 1+ /lpf; Mucus,Urine Trace /lpf; Squamous Epithelial Cell,Urine Occasional #/hpf (0-5)
--- NOTE | 2023-06-14 12:33 | PC.NURSE ---
WARM BLANKET AND LIGHTS DIMMED FOR PT. CALL LIGHT WITHIN REACH. FAMILY AT BEDSIDE
--- NOTE | 2023-06-14 13:06 | PC.NURSE ---
called Dr Gao per Dr Waters to speak with him about this pt
[2023-06-14] MEDS: KETOROLAC 30MG/ML VIAL 15 MG IV (13:24)
[2023-06-14] MEDS: ACETAMINOPHEN 1,000MG/100ML VIAL 1000 MG IV (13:25)
--- NOTE | 2023-06-14 13:32 | PC.NURSE ---
DR AZAR SPEAKING WITH DR DELANEY
--- NOTE | 2023-06-14 13:42 | PC.NURSE ---
Dr Gao called and spoke with Dr Waters about this pt
--- NOTE | 2023-06-14 14:05 | PC.NURSE ---
DR DELANEY PAGED
--- NOTE | 2023-06-14 14:12 | PC.NURSE ---
DR AZAR SPEAKING WITH DR DELANEY
[2023-06-14 14:24] LABS: Troponin I < 0.01 ng/ml (0.00-0.034)
--- NOTE | 2023-06-14 14:24 | PC.NURSE ---
Went to give patient, GI cocktail, patient stated that he is feeling better. Dr Waters at bedside, not giving Gi Cocktai or Nitro.
--- NOTE | 2023-06-14 15:28 | PC.NURSE ---
i gave pt an IS and he return demonstrated how to use it. educated on frequency of use as well. voiced understanding
[2023-06-14 15:32] LABS: Reflex Lactic Add Lactic Reflex
== END 2023-06-14 15:29 | disposition home or self-care (01) ==
PROVIDERS: Emergency Medicine; Emergency Provider Emergency Medicine; PCP Physician Assistant
DX: R07.89 Other chest pain (principal); J90 Pleural effusion, not elsewhere classified; T17.908A Unspecified foreign body in respiratory tract, part unspecified causing other injury, initial encounter; R10.32 Left lower quadrant pain; R05.9 Cough, unspecified; D18.03 Hemangioma of intra-abdominal structures; R00.0 Tachycardia, unspecified; Z96.0 Presence of urogenital implants; Z87.891 Personal history of nicotine dependence; I10 Essential (primary) hypertension; K21.9 Gastro-esophageal reflux disease without esophagitis; E78.5 Hyperlipidemia, unspecified
CPT/HCPCS: 71275; 74177; 80053; 81001; 82803; 83605; 83690; 84484; 85025; 87086; 93005; 96361; 96374; 96375; 99285; J0131; J2405; Q9967

== ENCOUNTER 2023-07-15 07:49 | Outpatient (CLI) | payer BC, SELFPAY ==
--- NOTE | 2023-07-15 07:49 | FL_ITS ---
FINAL REPORT CLINICAL HISTORY: .ft 1:47 dap- 3486.38 FINDINGS: UPPER GI WITH SBFT UPPER GI EXAM HISTORY: Abdominal pain, nausea. PROCEDURE: The patient ingested barium. Effervescent crystals were also administered. Spot and overhead films were obtained. FINDINGS: There is a small sliding-type hiatal hernia with a Schatzki's ring. There is mild gastroesophageal reflux. Peristalsis is normal. The rugal fold pattern of the stomach is normal. The duodenal bulb is normal. Fluoroscopy time: 1 minute and 47 seconds Fluoro dose: 3486.38 DAP in uGym[employer] IMPRESSION: 1. Small sliding type hiatal hernia with a Schatzki's ring. 2. Mild gastroesophageal reflux. SBFT: The python django developer film is normal. There is no evidence of obstruction. The mucosal fold pattern is normal. The terminal ilium is normal. IMPRESSION: Normal SBFT. Films reviewed , interpreted and dictated by Dr. Capellan. Transcribed by Mele Chan PA-C. Reviewed, Interpreted and Dictated by Luis E Capellan MD Transcribed by HOMERO Gardiner Authenticated and [facility]
[2023-07-15] MEDS: E-Z-GASII EFFERVESCENT GRANULES;1PK 1 EACH PO (08:26)
[2023-07-15] MEDS: BARIUM SULFATE(LIQUID E-Z-PAQUE);355ML BOTTLE 355 ML PO (08:26)
[2023-07-15] MEDS: BARIUM SULFATE (E-Z-HD 340GM);135ML BOTTLE 135 ML PO (08:26)
[2023-07-15] MEDS: DIATRIZOATE MEGLUMINE(GASTROGRAFIN) 66%-10% 120ML 20 ML PO (08:26)
== END 2023-07-15 23:59 | disposition home or self-care (01) ==
LOC: RAD 07:49
PROVIDERS: PCP Physician Assistant; Visit Provider Surgery
DX: R13.10 Dysphagia, unspecified (principal)
CPT/HCPCS: 74220; 74246; 74248

== ENCOUNTER 2023-07-21 09:39 | Outpatient (CLI) | payer BC, SELFPAY ==
--- NOTE | 2023-07-21 09:40 | NM_ITS ---
FINAL REPORT TECHNIQUE: Sequential anterior images were obtained after the ingestion of 2 whole eggs, 1 piece of toast, and 1 cup of water radiolabeled with 0.54 mCi technetium 99M sulfur colloid. CLINICAL HISTORY: nausea COMPARISON: None FINDINGS: GASTRIC EMPTYING SCAN Static images show normal emptying of the stomach into the small bowel. At 240 minutes, 92% of the gastric contents were emptied which is within normal limits. Based on the time activity curve, the estimated half-emptying time is 46 minutes. IMPRESSION: Normal gastric emptying study. Reviewed, Interpreted and Dictated by Josemanuel Yang MD Transcribed by Princess Smith Authenticated and [facility]
[2023-07-21] MEDS: TC99M SULF.COLLOID;1 DOSE (UP TO 20 MCI) IV (10:51)
== END 2023-07-21 23:59 | disposition home or self-care (01) ==
LOC: RAD 09:40
PROVIDERS: PCP Physician Assistant; Visit Provider Surgery
DX: R13.10 Dysphagia, unspecified (principal); R11.0 Nausea
CPT/HCPCS: 78264; A9541

== ENCOUNTER 2024-02-21 15:50 | Outpatient (POV) | payer BC, SELFPAY | END 2024-02-21 23:59 | disposition home or self-care (01) | LOC: SC 02-22 07:12 | PROVIDERS: Visit Provider Dermatology | DX: Z00.00 Encounter for general adult medical examination without abnormal findings (principal) ==

== ENCOUNTER 2024-05-07 13:35 | Outpatient (CLI) | payer BC, SELFPAY ==
[2024-05-07 20:08] LABS: Alanine Aminotransferase 50 U/L (12-78); Albumin Level 4.7 g/dl (3.5-5.0); Albumin/Globulin Ratio 1.8 (1.1-1.8); Alkaline Phosphatase 80 U/L (38-126); Anion Gap 14.5 mEq/L (5-15); Aspartate Amino Transferase 40 U/L (17-59); Bilirubin,Total 0.6 mg/dl (0.2-1.3); Blood Urea Nitrogen 13 mg/dl (9-20); Calcium 9.5 mg/dl (8.4-10.2); Carbon Dioxide 29 mmol/L (22.0-30.0); Chloride 102 mmol/L (98-107); Chol/HDL Ratio 7.1 (1-3.5); Cholesterol 227 mg/dl (140-200); Estimated Glomerular Filt Rate 79 ml/min (>60); GFR (African American) 96 ML/MIN (>60); Globulin 2.6 g/dL (1.3-3.2); Glucose 97 mg/dl (74-100); HDL Cholesterol 32 mg/dl (40-60); Potassium 4.5 mmoL/L (3.5-5.1); Sodium 141 mmol/L (136-145); Total Protein,Serum 7.3 g/dl (6.3-8.2); Triglycerides 110 mg/dl (30-150); VLDL Cholesterol 22 mg/dL (0-40)
[2024-05-07 20:19] LABS: Direct LDL Cholesterol 166.51 mg/dL (100-129)
== END 2024-05-07 23:59 | disposition home or self-care (01) ==
LOC: LAB.DROPOF 05-08 14:28
PROVIDERS: PCP Family Medicine; Visit Provider Family Medicine
DX: E78.2 Mixed hyperlipidemia (principal); E55.9 Vitamin D deficiency, unspecified
CPT/HCPCS: 80053; 80061; 82306; G0103

== ENCOUNTER 2024-12-03 15:34 | Outpatient (CLI) | payer BC, SELFPAY ==
--- NOTE | 2024-12-03 15:36 | XR_ITS ---
FINAL REPORT CLINICAL HISTORY: Evaluation for pain of left foot FINDINGS: LEFT FOOT Three views of the left foot demonstrate no acute fracture or dislocation. The visualized joint spaces are normally aligned. The soft tissues are unremarkable. IMPRESSION: No acute bony abnormality. Reviewed, Interpreted and Dictated by Josemanuel Yang MD Transcribed by Bernie Henderson Authenticated and [facility]
--- NOTE | 2024-12-03 15:36 | XR_ITS ---
FINAL REPORT CLINICAL HISTORY: pain, foot x a couple months FINDINGS: RIGHT FOOT 3 views of the right foot were obtained. There is no acute fracture or dislocation. Visualized joint spaces are normally aligned. Soft tissues are unremarkable. IMPRESSION: No acute bony abnormality. Reviewed, Interpreted and Dictated by Josemanuel Yang MD Transcribed by Bernie Henderson Authenticated and [facility]
--- OUTSIDE RECORDS SUMMARY | 2024-12-03 15:38 | XMS_ITS | Clinical Summary ---
Author Organization [facility] Address [address] [place] [address] Care Team Providers Care Compliance Specialist Name Role Phone Octavia Villela Primary Care Provider [phone] Allergies Active Allergy Reactions Criticality Noted Date Comments Clarithromycin Hives Medium 06/08/2023 Penicillins Unknown - Patient st ates they do not know rxn details Low 06/08/2023 Through testing Medications phenazopyridine (Pyridium) 200 MG tablet Take 1 tablet (200 mg) by mouth 3 (three) times a day if needed for discomfort or pain. 30 tablet 1 4 Active Additional Information Patient not taking.Reported on 05/10/2024 oxyCODONE (Roxicodone) 5 MG immediate release tablet Take 1 tablet (5 mg) by mouth every 6 (six) hours if needed for severe pain. 25 tablet Active Additional Information Patient not taking.Reported on 05/10/2024 oxybutynin (Ditropan) 5 MG tablet Take 1 tablet (5 mg) by mouth 3 (three) times a day if needed (bladder spasms; stent discomfort). 30 tablet 1 4 Active Additional Information Patient not taking.Reported on 05/10/2024 atorvastatin (Lipitor) 10 MG tablet Take 1 tablet (10 mg) by mouth every night. Active sucralfate (Carafate) 1 g tablet Take 1 tablet (1 g) by mouth 4 (four) times a day. As needed Active ergocalciferol 1.25 MG (53726 UT) capsule Take 1 capsule (50,000 Units) by mouth 1 (one) time per week. On Tuesdays 4 Active D3 Super Strength 50 MCG (1999) capsule Take by mouth 1 (one) time each day. 4 Active pantoprazole (Protonix) 40 MG EC tablet Take 1 tablet (40 mg) by mouth 1 (one) time each day. Active Flaxseed, Linseed, (FLAX SEED OIL PO) Take by mouth 1 (one) time each day. Active oxyCODONE (Roxicodone) 5 MG immediate release tablet Take 1 tablet (5 mg) by mouth every 6 (six) hours if needed for severe pain for up to 10 doses. 10 tablet 4 Active Additional Information Patient not taking.Reported on 05/10/2024 rosuvastatin (Crestor) 5 MG tablet Take 1 tablet (5 mg) by mouth daily. 5 Active Active Problems Problem Noted Date Diagnosed Date Left ureteral stone 06/09/2023 Social History Tobacco Use Types Packs/Day Years Used Date Smoking Tobacco: Never Passive Smoke Exposure: Never Smokeless Tobacco: Former Alcohol Use Standard Drinks/Week Comments Yes 2 (1 standard drink = 0.6 oz pur e alcohol) PHQ-2 Answer Date Recorded Patient Health Questionnaire-2 Score 0 05/10/2024 CAGE ASSESSMENT Answer Date Recorded Cage unable to access Not on file 06/09/2023 Cage max number of drinks Not on file 2023 Cage Beverages a week Not on file 06/09/2023 Have you ever felt you should CUT down on your d rinking? 0 06/09/2023 Have you been ANNOYED by people criticizing your drinking? 0 06/09/2023 Have you felt GUILTY about your drinking? 0 06/09/2023 Have you had a drink first t hiro in the morning (EYE-CORPORATE INTERN) to steady your nerves or to get rid of a hangover? 0 06/09/2023 CAGE Questionnaire Score 0 024 Sex and Gender Information Value Date Recorded Sex Assigned at Male 06/21/2023 1:14 PM EDT Legal Sex Male 7:40 PM EDT Gender Identity Male 06/21/2023 1:14 PM EDT Sexual Orientation Not on file Last Filed Vital Signs Vital Sign Reading Time Taken Comments Blood Pressure 131/89 05/10/2024 1:14 PM EST Pulse 85 05/10/2024 1:14 PM EST Temperature 36.4 C (97.5 F) 05/10/2024 1:14 PM EST Respiratory Rate 18 05/10/2024 1:14 PM EST Oxygen Saturation 98% 05/10/2024 1:14 PM EST Inhaled Oxygen Concentration - - Weight 108 kg (238 lb 12.1 oz) 05/10/2024 1:14 P M EST Height 193 cm (6' 4 ) 05/10/2024 1:14 PM EST Body Mass Index 29.06 05/10/2024 1:14 PM EST Plan of Treatment Upcoming Encounters Date Type Department Care Team (Late st Contact Info) Description 05/09/2025 12:30 PM EST Appointment [facility] Ultrasound [address] [place] [address] 05/09/2025 1:45 PM EST Office Visit Medical Office Building Urology [address], [address] [place] [address] Rubén Lowery MD [address] [place] [address] Health Maintenance Due Date Last Done Comments [facility]-Infant/Child/Adol SDOH Screenings 1975 [facility]- SDOH Screenings 06/07/1991 [facility]-Adult SDOH Screenings 06/07/1991 CT Colonography 2018 Colonoscopy 2018 FIT-DNA 2018 FIT 2018 FOBT 2018 Sigmoidoscopy 2018 [facility]-Colorectal Cancer Screening 2018 [facility]-Pneumococcal Vaccine: 50+ Years (1 of 1 - PCV) 06/07/2023 [facility]-Zoster Vaccines (1 of 2) 06/07/2023 [id number] Vaccine (3 - season) 2024 11/27/2020, 10/31/2020 [facility]-Influenza Vaccine (#1) 2024 [facility]-Depression Screening 05/10/2025 05/10/2024 [facility]-DTaP,Tdap,and Td Vaccines (2 - Td or Tdap) 08/24/2027 08/23/2017 [facility]-Hepatitis A Vaccines Aged Out 019, 03/03/2018, 08/23/2017 No longer eligible based on patient's age to complete this topic [facility]-Hepatitis B Vaccines Completed 019, 03/03/2018, 08/23/2017, Additional history exists [facility]-HIV Screening Completed 06/08/2023 [facility]-Hepatitis C Screening Completed 06/08/2023 [facility]-Obesity Intervention Completed 025, 09/29/2023, 06/08/2023 HPV Vaccines Aged Out No longer eligi ble based on patient's age to complete this topic [facility]-HIB Vaccines Aged Out No longer e ligible based on patient's age to complete this topic [facility]-IPV Vaccines Aged Out No longer e ligible based on patient's age to complete this topic [facility]-Rotavirus Vaccines Aged Out No lo nger eligible based on patient's age to complete this topic Medical Devices Implanted Type Area Muff Winder Device Identifier Shelf Expiration Date Model / Serial / Lot Stent Ureteral Double Pigtail Pos 6fr 26cm - [id number] Implanted:Qty: 1 on 06/09/2023 at [facility] Stent Left: [employer]-[id number] 03/24/2025 [id number] / / [id number] Stent Ureteral Double Pigtail Pos 5fr 26cm - [id number] Implanted:Qty: 1 on 11/07/2023 by Rubén Lowery MD at [facility] [employer]-[id number] 11/24/2024 [id number] / / [id number] Stent Ureteral Double Pigtail Pos 6fr 26cm - [id number] Implanted:Qty: 1 on 06/28/2023 by Carson Arroyo MD at [facility] Left: U[employer]ter [employer]-[id number] 01/03/2025 [id number] / / [id number] Procedures Procedure Name Priority Date/Time Associated Diagnosis Comments HEPATITIS C ANTIBODY - ED W/REFLEX TO HCV QUANT PCR STAT 06/08/2023 10:58 PM EDT ED HIV 1/2 ANTIBODY/ANTIGEN SCREEN WITH REFLEX TO HIV I/II DIFFERENTIATION STAT 06/08/2023 10:58 PM EDT from Last 3 Months or Most Recently Relevant to Health Maintenance Results * ED HIV 1/2 Antibody/Antigen Screen w/Reflex to HIV 1/2 Differentiation (06/08/2023 10:58 PM EDT) HIV 1 & 2 Antibody/Antigen Screen Non Reactive Non Reactive 06/08/2023 11:45 PM EDT [facility] Comment:Screening for HIV 1 & 2 antibodies, and P24 antigen is NONREACTIVE. No confirmatory testing is required. Blood Venous blood specimen / Unknown Venipuncture / Unknown 06/08/2023 10:58 PM EDT 06/08/2023 11:02 PM EDT [facility] BLOOD ORDERABLES Final [facility] esult [facility] [address] [place] [address] * Hepatitis C Antibody - ED (06/08/2023 10:58 PM EDT) Hepatitis C Antibody Negative Negative 06/08/2023 11:41 PM EDT [facility] Blood Venous blood specimen / Unknown Venipuncture / Unknown 06/08/2023 10:58 PM EDT 06/08/2023 11:02 PM EDT [facility] BLOOD ORDERABLES Final R esult [facility] [address] [place] [address] from Last 3 Months or Most Recently Relevant to Health Maintenance Insurance ANTH Advance Directives * Full Code (Latest Code Status on File) Date Activated Date Inactivated Comments 06/09/2023 1:16 AM 06/09/2023 9:25 PM Question Answer Comments Patient has decision-making capacity? Yes Care Teams Compliance Specialist Relationship Specialty Start Date End Date Octavia Villela PA [address] [place] [address] PCP - General 06/08/23
== END 2024-12-03 23:59 | disposition home or self-care (01) ==
LOC: RAD 15:35
PROVIDERS: PCP Family Medicine; Visit Provider Family Medicine
DX: M79.672 Pain in left foot (principal); M79.671 Pain in right foot
CPT/HCPCS: 73630

== ENCOUNTER 2024-12-19 14:30 | Outpatient (CLI) | payer BC, SELFPAY ==
[2024-12-19 22:02] LABS: Coronavirus 19, PCR Not Detected (NotDetected); Influenza A, PCR Not Detected (NotDetected); Influenza B, PCR Not Detected (NotDetected)
--- OUTSIDE RECORDS SUMMARY | 2024-12-20 11:42 | XMS_ITS | Clinical Summary ---
Author Organization [facility] Address [address] [place] [address] Care Team Providers Care Button Tufting Machine Operator Name Role Phone Octavia Villela Primary Care Provider [phone] Allergies Active Allergy Reactions Criticality Noted Date [...] day. As needed Active ergocalciferol 1.25 MG (77743 UT) capsule Take 1 capsule (50,000 Units) [...] drink first t hiro in the morning (EYE-INTERSTATE BUS DRIVER) to steady your nerves or to get [...] Info) Description 05/09/2025 12:30 PM EST Appointment [facility] Ultrasound [address] [place] [address] 05/09/2025 1:45 PM EST Office Visit Medical Office Building Urology [address], [address] [place] [address] Rubén Lowery MD [address] [place] [address] Health Maintenance Due Date Last Done Comments [facility]-/Child/Adol SDOH Screenings 1975 [facility]- SDOH Screenings 06/07/1991 [facility]-Adult SDOH Screenings 06/07/1991 CT Colonography 2018 Colonoscopy 2018 FIT-DNA 2018 FIT 2018 FOBT 2018 Sigmoidoscopy 2018 [facility]-Colorectal Cancer Screening 2018 [facility]-Pneumococcal Vaccine: 50+ Years (1 of 1 - PCV) 06/07/2023 [facility]-Zoster Vaccines (1 of 2) 06/07/2023 [id number] Vaccine (3 - season) 2024 11/27/2020, 10/31/2020 [...] this topic Medical Devices Implanted Type Area Nurse Receptionist Device Identifier Shelf Expiration Date Model / Serial / Lot Stent Ureteral Double Pigtail Pos 6fr 26cm - [id number] Implanted:Qty: 1 on 06/09/[address] [facility] Stent Left: [employer]-[id number] 03/24/2025 [id number] 0 / / [id number] Stent Ureteral Double Pigtail Pos 5fr 26cm - [id number] Implanted:Qty: 1 on 11/07/2023 by Rubén Lowery MD at [facility] [employer]-[id number] 11/24/2024 [id number] 0 / / [id number] Stent Ureteral Double Pigtail Pos 6fr 26cm - [id number] Implanted:Qty: 1 on 06/28/2023 by Carson Arroyo MD at [facility] Left: U[employer]-[id number] 01/03/2025 [id number] / / [id number] Procedures Procedure Name Priority Date/Time Associated Diagnosis [...] ORDERABLES Final R esult [facility] [address] [place] [address] * Hepatitis C Antibody - ED (06/08/2023 10:58 PM EDT) Hepatitis C Antibody Negative Negative 06/08/2023 11:41 PM EDT [facility] Blood Venous blood specimen / Unknown Venipuncture / Unknown 06/08/2023 10:58 PM EDT 06/08/2023 11:02 PM EDT [facility] BLOOD ORDERABLES Final R esult [facility] [address] [place] [address] from Last 3 Months or Most Recently Relevant to Health Maintenance Insurance ANTH Advance Directives * Full Code (Latest Code Status on File) Date Activated Date Inactivated Comments 06/09/2023 1:16 AM 06/09/2023 9:25 PM Question Answer Comments Patient has decision-making capacity? Yes Care Teams Button Tufting Machine Operator Relationship Specialty Start Date End Date Octavia Villela PA [address] [place] [address] PCP - General 06/08/23
== END 2024-12-19 23:59 ==
LOC: LAB.DROPOF 12-20 11:40
PROVIDERS: PCP Student in an Organized Health Care Education/Training Program; Visit Provider Student in an Organized Health Care Education/Training Program
DX: R51.9 Headache, unspecified (principal); R42 Dizziness and giddiness; Z20.828 Contact with and (suspected) exposure to other viral communicable diseases
CPT/HCPCS: 87636

== ENCOUNTER 2025-01-07 09:47 | Outpatient (CLI) | payer BC, SELFPAY ==
--- NOTE | 2025-01-07 10:00 | MR_ITS ---
FINAL REPORT CLINICAL HISTORY: vestibular neuritis few dizzy spells x few weeks ago swimmy headed sensation pain can radiated to ears 20 ml prohance COMPARISON: None FINDINGS: MRI BRAIN WITHOUT AND WITH CONTRAST TECHNIQUE: Multiplanar imaging was performed of the brain with and without Gadolinium infusion. Thin section imaging through the internal auditory canals was not performed on this examination. Diffusion sequences show no signal abnormalities to indicate acute infarct or other process. Brain parenchyma displays normal signal without evidence of mass, hemorrhage or edema. No extra-axial abnormal findings are seen. The ventricles and cisterns appear normal. No abnormal enhancing lesions are identified on the post infusion images. IMPRESSION: Unremarkable MRI of the brain, without and with Gadolinium administration. Reviewed, Interpreted and Dictated by Josemanuel Yang MD Transcribed by Amy Estes Authenticated and [facility]
--- OUTSIDE RECORDS SUMMARY | 2025-01-07 10:23 | XMS_ITS | Clinical Summary ---
Author Organization [facility] Address [address] [place] [address] Care Team Providers Care Non Licensed Nuclear Equipment Operator Name Role Phone Octavia Villela Primary Care Provider [phone] Allergies Active Allergy Reactions Criticality Noted Date [...] day. As needed Active ergocalciferol 1.25 MG (50088 UT) capsule Take 1 capsule (50,000 Units) [...] drink first t hiro in the morning (EYE-AREA OPERATIONS MANAGER) to steady your nerves or to get [...] Info) Description 05/09/2025 12:30 PM EST Appointment [facility] Ultrasound [address] [place] [address] 05/09/2025 1:45 PM EST Office Visit Medical Office Building Urology [address], [address] [place] [address] Rubén Lowery MD [address] [place] [address] Health Maintenance Due Date Last Done Comments [facility]-Infant/Child/Adol SDOH Screenings 1975 [facility]- SDOH Screenings 06/07/1991 [facility]-Adult SDOH Screenings 06/07/1991 CT Colonography 2018 Colonoscopy 2018 FIT-DNA 2018 FIT 2018 FOBT 2018 Sigmoidoscopy 2018 [facility]-Colorectal Cancer Screening 2018 [facility]-Pneumococcal Vaccine: 50+ Years (1 of 1 - PCV) 06/07/2023 [facility]-Zoster Vaccines (1 of 2) 06/07/2023 [id number] Vaccine (3 - season) 2024 11/27/2020, 10/31/2020 [...] this topic Medical Devices Implanted Type Area Emergency Medicine Medical Director Device Identifier Shelf Expiration Date Model / Serial / Lot Stent Ureteral Double Pigtail Pos 6fr 26cm - [id number] Implanted:Qty: 1 on 06/09/2023 at [facility] Stent Left: U[employer]-[id number] 03/24/2025 [id number] / / [id number] Stent Ureteral Double Pigtail Pos 5fr 26cm - [id number] Implanted:Qty: 1 on 11/07/2023 by Rubén Lowery MD at [facility] [employer]-[id number] 11/24/2024 [id number] / / [id number] Stent Ureteral Double Pigtail Pos 6fr 26cm - [id number] Implanted:Qty: 1 on 06/28/2023 by Carson Arroyo MD at [facility] Left: U[employer]-[id number] 01/03/2025 [id number] / / [id number] Procedures Procedure Name Priority Date/Time Associated Diagnosis [...] ORDERABLES Final R esult [facility] [address] [place] [address] * Hepatitis C Antibody - ED (06/08/2023 10:58 PM EDT) Hepatitis C Antibody Negative Negative 06/08/2023 11:41 PM EDT [facility] Blood Venous blood specimen / Unknown Venipuncture / Unknown 06/08/2023 10:58 PM EDT 06/08/2023 11:02 PM EDT [facility] BLOOD ORDERABLES Final R esult [facility] [address] [place] [address] from Last 3 Months or Most Recently Relevant to Health Maintenance Insurance ANTH Advance Directives * Full Code (Latest Code Status on File) Date Activated Date Inactivated Comments 06/09/2023 1:16 AM 06/09/2023 9:25 PM Question Answer Comments Patient has decision-making capacity? Yes Care Teams Non Licensed Nuclear Equipment Operator Relationship Specialty Start Date End Date Octavia Villela PA [address] [place] [address] PCP - General 06/08/23
[2025-01-07] MEDS: GADOTERIDOL INJ 20ML SYRINGE 20 ML IV (10:30)
[2025-01-07] MEDS: SODIUM CHLORIDE 0.9% 10ML SYR (RAD ONLY) 10 ML IV (10:30)
== END 2025-01-07 23:59 | disposition home or self-care (01) ==
LOC: RAD 09:47
PROVIDERS: PCP Family Medicine; Visit Provider Student in an Organized Health Care Education/Training Program
DX: H81.20 Vestibular neuronitis, unspecified ear (principal); Z80.8 Family history of malignant neoplasm of other organs or systems
CPT/HCPCS: 70553; A9576